=== PATIENT | female | born 1985 | race Hispanic/Latino ===

== ENCOUNTER 2018-01-24 13:10 | Outpatient (CLI) | payer OTHER ==
--- NOTE | 2018-01-24 15:34 | RAD ---
KUB: 01/24/18 HISTORY: Renal stone. There is a fetus in the breech presentation noted. There are dense calcifications in the right upper quadrant. These overlie the right renal pelvis and lower pole of the right kidney probably a staghorn calculus although they are somewhat laminated appearance. Would not totally exclude the possibility that these were related to large gallstones. Faint calcification in the region of the left renal pelv is. There are calcifications in the right side of the pelvis, one of which is a faint 3 to 4 mm trian gular shaped calcification which could potentially be near the right ureterovesical junction. Not ent irely certain that this even represents a true calculus. Clinical correlation as to any right renal c olic symptoms. IMPRESSION: 1. Fetus in a breech presentation. 2. Dense calcifications over the right upper quadrant which could represent staghorn calculus al though would not total exclude the possibility that these are large gallstones. 3. Questionable tiny calcification near the right ureterovesical junction and probable left yandel l calculus. POS: [facility]
== END 2018-01-24 13:11 | disposition home or self-care (01) ==
LOC: RAD 13:10
PROVIDERS: ATTEND Urology
DX: O26.839 Pregnancy related renal disease, unspecified trimester (principal); N20.0 Calculus of kidney; O32.1XX0 Maternal care for breech presentation, not applicable or unspecified
CPT/HCPCS: 74018

== ENCOUNTER 2018-04-17 16:11 | Inpatient (IN) | payer OTHER ==
[~2018-04-17 16:11] MED LIST: Lidocaine 2% MPF 10 ML AMP (For Epidural Use) ONE
[2018-04-17 17:03] VITALS: BMI 32.5
[2018-04-17] MEDS ORDERED: HYDROcodone/Acetaminophen 5/325 mg Tablet PO PRN ×2 (17:36)
[2018-04-17] MEDS ORDERED: Lidocaine 1% (PF) 30 ML VIAL SC PRN (17:36)
[2018-04-17] MEDS ORDERED: Misoprostol 200 MCG TAB PR PRN (17:36)
[2018-04-17] MEDS ORDERED: Diphenoxylate HCl/Atropine Tablet PO PRN ×2 (17:36)
[2018-04-17] MEDS ORDERED: Carboprost 250 MCG/ML AMP IM PRN (17:36)
[2018-04-17] MEDS ORDERED: Ondansetron PF 4 MG/2 ML Vial IVP PRN (17:36)
[2018-04-17] MEDS ORDERED: Acetaminophen 500 MG TAB PO PRN (17:36)
[2018-04-17] MEDS ORDERED: NS / Oxytocin 40 units/1000ml 1,000 ML IV PRN (17:36)
[2018-04-17] MEDS ORDERED: Docusate 100 MG CAP PO PRN (17:36)
[2018-04-17] MEDS ORDERED: Ibuprofen 800 MG TAB PO PRN (17:36)
[2018-04-17] MEDS ORDERED: Promethazine HCl 25 MG/ML VIAL IM PRN (17:36)
[2018-04-17] MEDS ORDERED: Butorphanol Tartrate 1 MG/ML VIAL SLOW IVP PRN (17:36)
[2018-04-17] MEDS ORDERED: Ondansetron PF 4 MG/2 ML Vial ONE (17:40)
[2018-04-17] MEDS: Lactated Ringer's 1,000 ML IV SCH (17:45)
[2018-04-17 18:09] LABS: Hemoglobin 12.8 g/dL (12.0-16.0); Mean Corpuscular HGB CONC 35.7 g/dL (32.0-36.0); Mean Corpuscular Hemoglobin 31.3 pg (27.0-31.0); Mean Corpuscular Volume 87.8 fL (78.0-98.0); Mean Platelet Volume 7.7 fL (7.4-10.4); Platelet Count 218 thou/uL (130-400); Red Blood Cell (RBC) Count 4.09 mill/uL (4.20-5.40); White Blood Cell (WBC) Count 9.3 thou/uL (4.8-10.8)
[2018-04-17 18:32] LABS: ALT (SGPT) 10 U/L (8-55); AST (SGOT) 18 U/L (5-34); Albumin 3.5 g/dL (3.5-5.0); Alkaline Phosphatase 256 U/L (40-150); Anion Gap 17 mmol/L (10-20); BUN (Urea Nitrogen) 12 mg/dL (7.0-18.7); Bilirubin, Total 0.4 mg/dL (0.2-1.2); Calc. Creatinine Clearance 135 mL/min (70-130); Calcium 9.4 mg/dL (7.8-10.44); Carbon Dioxide 17 mmol/L (22-29); Chloride 108 mmol/L (98-107); Estimated GFR-MDRD 82; Globulin 3.1 g/dL (2.4-3.5); Glucose 104 mg/dL (70-105); Potassium 3.7 mmol/L (3.5-5.1); Protein, Total 6.6 g/dL (6.0-8.3); Sodium 138 mmol/L (136-145)
[2018-04-17 18:57] LABS: HBSAg Index 0.23 S/CO (0-0.99); Hep B Surf Ag Non-Reactive S/CO (NonReactive)
[2018-04-17 19:36] LABS: Syphilis Antibody Nonreactive (Nonreactive); Syphilis Antibody Index 0.07 S/CO (<1.00 Non-Reactive)
[2018-04-17] MEDS ORDERED: Zolpidem Tartrate 5 MG TAB PO PRN (20:05)
[2018-04-18] MEDS: Lactated Ringer's 1,000 ML IV SCH ×2 (08:03→15:15)
--- NOTE | 2018-04-18 09:11 | PDOC.LDHP ---
Labor and Delivery H&P Chief complaint: other HPI: 32 y/o at 38 and 4/7wks presents to clinic today with BP 158/82. Ultrasound for growth shows Oligohydramnios, NING of 5cm. Patient is also 4cm dilated on cervical exam and desires a 3rd TOLAC (2 previous successful VBACs). Furthermore, Urology has been involved throughout this from early 2nd trimester for complex renal lithiasis requiring percutaneous nephrostomy tube on right (now removed). Urology recommended "Induction at term" - which given TOLAC desires - we have tried to work with and had planned a 39 weeks induction. Current gestational age (weeks): 38 Due date: 04/27/18 Grav: 11 Para: 7 Current complications: gestational hypertension, oligohydramnios, other (Severe Renal Lithiasis) Abnormal US findings: Yes (NING at 5cm (borderline Oligohydramnios)) Current medications: pre- vitamins Previous surgical history: low tranverse CS Allergies/Adverse Reactions: Allergies Allergy/AdvReac Type Severity Reaction Status Date / Time hydrocodone Allergy Verified 04/17/18 18:05 Social history: none - Physical Exam Vital signs reviewed and normal: yes General: NAD Heart: RRR Lungs: nonlabored breathing Abdomen: NTTP Extremeties: no edema FHT: category 1 - Vaginal Exam cm dilated: 4 (4cm/80%/-1) - Assessment L&D Assessment: medically indicated induction - Plan Plan: admit to L&D, labor augmentation if indicated, informed consent obtained, other (Patient is requesting 3rd TOLAC for delivery.)
--- NOTE | 2018-04-18 13:30 | PDOC.EVN ---
Event Note - Event Note Event Note: Asked to AROM by Dr. Saunders. Term IUP with dec. NING, h/o C/S with h/o VBACs x2. SVE 4-/vtx, -1. AROM- small amt. of clear fluid with bloody show. FHTs stable.
[2018-04-18] MEDS ORDERED: Fentanyl 4 mcg/Bup 0.1% Cadd 100 ML ONE (13:43)
[2018-04-18] MEDS ORDERED: Acetaminophen 325 MG TAB PO PRN (15:18)
[2018-04-18] MEDS ORDERED: Naloxone HCl 0.4 mg/ml Vial IVP PRN ×2 (15:18)
[2018-04-18] MEDS ORDERED: Ondansetron PF 4 MG/2 ML Vial IVP PRN ×2 (15:18→21:48)
[2018-04-18] MEDS ORDERED: Promethazine HCl 25 MG/ML VIAL IM PRN ×2 (15:18→21:48)
[2018-04-18] MEDS ORDERED: diphenhydrAMINE 50 MG/ML VIAL IVP PRN (15:18)
[2018-04-18] MEDS ORDERED: Lactated Ringer's 500 ML IV PRN (15:18)
[2018-04-18] MEDS ORDERED: ePHEDrine/0.9% NaCl/PF SYRINGE 50 mg/10 ml SLOW IVP PRN (15:18)
[2018-04-18] MEDS ORDERED: Eucerin (Mineral Oil/Petrolatum,White) 30 gm Jar TOP PRN (15:18)
[2018-04-18] MEDS ORDERED: Communication Order-Pharmacy FS SCH (15:30)
[2018-04-18] MEDS ORDERED: Fentanyl 4 mcg/Bupivacaine 0.1% Cassette 100 ML EPIDURAL SCH (15:30)
[2018-04-18] MEDS ORDERED: NS w/ Oxytocin 10 units 500 ML ONE (17:31)
[2018-04-18] MEDS ORDERED: NS / Oxytocin 40 units/1000ml 1,000 ML ONE ×2 (19:13)
[2018-04-18] MEDS ORDERED: Lidocaine 1% (PF) 30 ML VIAL ONE (19:13)
[2018-04-18] MEDS ORDERED: Misoprostol 200 MCG TAB ONE (19:17)
[2018-04-18] MEDS ORDERED: Zolpidem Tartrate 5 MG TAB PO PRN (21:48)
[2018-04-18] MEDS ORDERED: Preparation H Ointment 28 GM TUBE PR PRN (21:48)
[2018-04-18] MEDS ORDERED: Measles/Mumps/Rubella 10 MCG/0.5 ML VIAL SC ONE (21:48)
[2018-04-18] MEDS ORDERED: NS / Oxytocin 40 units/1000ml 1,000 ML IV SCH (21:48)
[2018-04-18] MEDS ORDERED: diphenhydrAMINE 25 MG CAP PO PRN (21:48)
[2018-04-18] MEDS ORDERED: Benzocaine/Menthol 20-0.5% 60 ML CAN TOP PRN (21:48)
[2018-04-18] MEDS ORDERED: Bisacodyl 10 MG SUPP PR PRN (21:48)
[2018-04-18] MEDS ORDERED: Lanolin Ointment 7 GM TUBE TOP PRN (21:48)
[2018-04-18] MEDS ORDERED: Milk Of Magnesia 30 ML UDCUP PO PRN (21:48)
[2018-04-18] MEDS ORDERED: Varicella virus, LIVE 0.5 ML VIAL SC ONE (21:48)
[2018-04-18] MEDS ORDERED: Adacel (T-DAP) 0.5 ML SYRINGE IM ONE (21:48)
[2018-04-18] MEDS: Ibuprofen 800 MG TAB PO SCH (21:59)
[2018-04-19] MEDS: Lactated Ringer's 1,000 ML IV SCH (03:29)
[2018-04-19] MEDS: Ibuprofen 800 MG TAB PO SCH ×3 (06:34→21:43)
[2018-04-19 06:41] LABS: Hemoglobin 10.6 g/dL (12.0-16.0); Mean Corpuscular HGB CONC 35.2 g/dL (32.0-36.0); Mean Corpuscular Hemoglobin 31.5 pg (27.0-31.0); Mean Corpuscular Volume 89.4 fL (78.0-98.0); Mean Platelet Volume 7.3 fL (7.4-10.4); Platelet Count 161 thou/uL (130-400); RBC Distribution Width 12.8 % (11.5-14.5); Red Blood Cell (RBC) Count 3.36 mill/uL (4.20-5.40); White Blood Cell (WBC) Count 8.8 thou/uL (4.8-10.8)
[2018-04-19] MEDS: Ferrous Sulfate 325 MG TAB PO SCH ×2 (10:01→17:18)
[2018-04-19] MEDS: Prenatal Vitamin 1 TAB PO SCH (10:23)
[2018-04-19] MEDS: Docusate Calcium (SURFAK) 240 MG CAP PO SCH ×2 (10:23→21:43)
--- NOTE | 2018-04-19 20:34 | PDOC.PP ---
Post Progress Note Post Day #: 1 PO intake tolerated: yes Flatus: yes Ambulation: yes Vital Signs (12 hours) Temp Pulse Resp BP Pulse Ox 04/19/18 17:26 97.9 F 63 20 107/68 98 04/19/18 12:03 97.9 F 87 20 137/84 04/19/18 08:35 100 Weight Weight 190 lb - Physical Examination General: NAD Cardiovascular: no m/r/g, RRR Respiratory: clear to auscultation bilaterally Abdominal: + bowel sounds Extremities: negative homans (B) Neurological: no gross focal deficits Psychiatric: A&Ox3, normal affect (UTI based on just resulted clinical UA. Will start on 7 days of Macrobid. DC in am. Urology F/U in clinic JONI.) Result Diagrams: 04/19/18 06:22 04/17/18 16:54 Additional Labs: Post Labs Blood Type A POSITIVE 04/17/18 16:54 Hep Bs Antigen Non-Reactive S/CO (NonReactive) 04/17/18 16:54
[2018-04-19] MEDS ORDERED: Acetaminophen/Codeine 30-300mg Tablet PO PRN (20:35)
[2018-04-19] MEDS: Nitrofurantoin Monohyd/M-Cryst 100 MG CAP PO SCH (21:43)
[2018-04-20] MEDS: Ibuprofen 800 MG TAB PO SCH (06:02)
[2018-04-20 08:09] VITALS: BP 117/65; TEMP 98.4
[2018-04-20] MEDS: Prenatal Vitamin 1 TAB PO SCH (09:04)
[2018-04-20] MEDS: Ferrous Sulfate 325 MG TAB PO SCH (09:04)
[2018-04-20] MEDS: Nitrofurantoin Monohyd/M-Cryst 100 MG CAP PO SCH (09:04)
[2018-04-20] MEDS: Docusate Calcium (SURFAK) 240 MG CAP PO SCH (09:05)
--- NOTE | 2018-04-24 08:41 | OP ---
DATE OF PROCEDURE: 04/18/2018 TIME OF SERVICE: 1921 Hours PREOPERATIVE DIAGNOSES: Intrauterine at 38 weeks and 5 days with spontaneous early labor, history of vaginal after x2, history of percutaneous nephrostomy of this for renal lithiasis with urology recommending early term delivery and oligohydramnios. POSTOPERATIVE DIAGNOSES: Intrauterine at 38 weeks and 5 days with spontaneous early labor, history of vaginal after x2, history of percutaneous nephrostomy of this for renal lithiasis with urology recommending early term delivery and oligohydramnios. PROCEDURE PERFORMED: Delivery was a successful vaginal after section (spontaneous vaginal delivery) over first-degree laceration. FINDINGS: A viable female infant weighing 3961 grams or 8 pounds 12 ounces, Apgars of 8 and 9. QUANTITATIVE BLOOD LOSS: 81 grams. COMPLICATIONS: None. DETAILS OF THE PROCEDURE: The patient presented to [facility] where she was admitted to the Labor and Delivery service. The patient underwent a normal and uneventful labor with normal cervical dilatation until she was found to be completely dilated. She was then allowed to push and was able to bring the baby down and delivered the baby in a vertex presentation without difficulties. Once the head delivered in occiput anterior position, the shoulders followed spontaneously along with the rest of the baby's body. Once out the baby's mouth and nose were bulb suctioned. The cord was clamped and cut and baby was handed to waiting attendants. Cord blood was collected. Gentle Fundal massage was performed and the placenta delivered intact without problems. Hemostasis was assured. Quantitative blood loss was calculated. Inspection of the cervix, vaginal vault, and perineum did not reveal any lacerations needing suturing. Once again, hemostasis was within normal limits and the patient was allowed to recover in the labor and delivery room. Baby went to nursery. ADDENDUM: The patient was brought in at 4 to 5 cm dilatation. We believe the patient was in early labor. Nonetheless, the patient had oligohydramnios at term. She made minimal change overnight. Membranes were artificially ruptured the following day with the assistance of Dr. Jerald Pryor. The patient continued to make minimal change, we started Pitocin and within a very short timeframe with Pitocin at 4 milliunits, she quickly changed from 5 to 7 cm to complete and then gave quickly and easily over a small first-degree laceration. Job ID: [id number]
== END 2018-04-20 12:00 | disposition home or self-care (01) | DRG 806 ==
LOC: L&D/OP 16:11 → L&D 17:18 → 3SW 04-19 00:23
PROVIDERS: ADMIT Obstetrics & Gynecology; ATTEND Obstetrics & Gynecology
PROC: 10E0XZZ Delivery of Products of Conception, External Approach (ICD-10-PCS; principal; 2018-04-18)
PROC: 10907ZC Drainage of Amniotic Fluid, Therapeutic from Products of Conception, Via Natural or Artificial Opening (ICD-10-PCS; 2018-04-18)
DX: O41.03X0 Oligohydramnios, third trimester, not applicable or unspecified (principal); O86.20 Urinary tract infection following delivery, unspecified; Z37.0 Single live birth; O13.4 Gestational [pregnancy-induced] hypertension without significant proteinuria, complicating childbirth; O70.0 First degree perineal laceration during delivery; Z3A.38 38 weeks gestation of pregnancy; N20.0 Calculus of kidney
CPT/HCPCS: 36415; 51702; 80053; 85027; 86780; 86850; 86900; 86901; 87340; 90471; 90686; 90715; G0008; J1200; J2001; J2405

== ENCOUNTER 2018-05-23 12:56 | Outpatient (CLI) | payer OTHER ==
[~2018-05-23 12:56] MED LIST changes: +ISOVUE-370 76%-LOCM 1 ML ONE; -Lidocaine 2% MPF 10 ML AMP (For Epidural Use) ONE
--- NOTE | 2018-05-23 14:53 | CT ---
CT OF THE ABDOMEN AND PELVIS WITHOUT AND WITH CONTRAST: COMPARISON: X-ray from [facility] 01/24/2018. HISTORY: Calculus of the kidney and ureter. TECHNIQUE: Multiple contiguous axial images were obtained in a CT of the abdomen and pelvis without and with con trast. Sagittal and coronal reformats were performed. FINDINGS: There are bulky calcifications in the right renal collecting system. The largest calcification is se en in the proximal aspect of the right ureter extending into the renal pelvis measuring 2.5 cm in gre atest dimension. The calculi within the calyces have been confluent and are starting to appear as st aghorn calculi. There is mild enlargement of the right renal calyces. No delay in the right renal n ephrogram is seen. There is a small left renal calcification measuring 6-7 mm in greatest dimension. The liver, gallbladder, adrenal glands, spleen, and pancreas are unremarkable. No free air, free flu id, or stranding changes are seen in the abdomen or pelvis. The reproductive organs are unremarkable. The large and small bowel are unremarkable. No abdominal or pelvic lymphadenopathy are seen. Degenerative changes are seen in the spine. The visualized inferior thorax and abdominal wall soft t issues are unremarkable. IMPRESSION: Bilateral renal calculi, right greater than left. These calculi appear nonobstructing as there is no delay in either nephrogram. POS: [facility]
== END 2018-05-23 12:57 | disposition home or self-care (01) ==
LOC: BICCT 12:56
PROVIDERS: ATTEND Urology
DX: N20.2 Calculus of kidney with calculus of ureter (principal)
CPT/HCPCS: 74178

== ENCOUNTER 2018-05-25 11:23 | Outpatient (CLI) | payer OTHER ==
[2018-05-25 12:34] LABS: Hemoglobin 14.1 g/dL (12.0-16.0); Mean Corpuscular HGB CONC 33.7 g/dL (32.0-36.0); Mean Corpuscular Hemoglobin 30.3 pg (27.0-31.0); Mean Corpuscular Volume 89.9 fL (78.0-98.0); Mean Platelet Volume 6.4 fL (7.4-10.4); Platelet Count 207 thou/uL (130-400); RBC Distribution Width 11.8 % (11.5-14.5); Red Blood Cell (RBC) Count 4.67 mill/uL (4.20-5.40); White Blood Cell (WBC) Count 6.2 thou/uL (4.8-10.8)
[2018-05-25 12:42] LABS: BHCG - Serum Negative (NEGATIVE); Pregs Control Background? CLEAR/WHITE (CLR/WHITE); Pregs Control Bar Appear? YES (CONTROL BAR)
[2018-05-25 12:46] LABS: Anion Gap 10 mmol/L (10-20); BUN (Urea Nitrogen) 14 mg/dL (7.0-18.7); Calc. Creatinine Clearance 0 mL/min (70-130); Calcium 9.2 mg/dL (7.8-10.44); Carbon Dioxide 25 mmol/L (22-29); Chloride 109 mmol/L (98-107); Estimated GFR-MDRD 78; Glucose 86 mg/dL (70-105); Potassium 4.3 mmol/L (3.5-5.1); Sodium 140 mmol/L (136-145)
== END 2018-05-25 11:24 | disposition home or self-care (01) ==
LOC: LABBT 11:23
PROVIDERS: ATTEND Urology
DX: Z01.812 Encounter for preprocedural laboratory examination (principal); N20.2 Calculus of kidney with calculus of ureter; N39.0 Urinary tract infection, site not specified; R39.14 Feeling of incomplete bladder emptying
CPT/HCPCS: 80048; 84703; 85027

== ENCOUNTER 2018-05-29 08:40 | Day surgery (SDC) | payer OTHER ==
[2018-05-29] MEDS ORDERED: Fentanyl 100 MCG/2 ML VIAL ONE (09:11)
[2018-05-29] MEDS ORDERED: cefTRIAXone\\ROCEPHIN 1 GM in Sodium Chloride 0.9% 100 ML IVPB SCH (09:45)
[2018-05-29] MEDS ORDERED: Midazolam HCl 2 mg/2 ml Vial ONE (10:17)
[2018-05-29] MEDS ORDERED: Iothalamate Meglumine 60% 50 ML VIAL FS ONE (10:32)
--- NOTE | 2018-05-29 10:40 | RAD ---
ONE VIEW ABDOMEN: HISTORY: Preoperative exam. COMPARISON: 01/24/2018 CORRELATION: CT abdomen and pelvis from 05/23/2018. FINDINGS: Nonspecific bowel gas pattern. Scattered fecal material in a nondistended, nondilated colon. Extensive staghorn calcifications projecting over the right renal pelvis. Smaller calcifications in the left renal pelvis are noted. No pneumoperitoneum. IMPRESSION: Bilateral, right greater than left, renal calculi. POS: [facility]
[2018-05-29] MEDS ORDERED: Furosemide 20 MG/2 ML VIAL ONE (11:37)
[2018-05-29 11:44] LABS: Bilirubin Negative (Negative); Blood, Urine Large (Negative); Clarity CLOUDY (Clear); Glucose, Urine (Dipstick) Negative (Negative); Leukocyte Large (Negative); Nitrite Negative (Negative); Protein, Urine (Dipstick) Trace mg/dL (Neg-Trace); Specific Gravity, Urine 1.021 (1.002-1.036); Urobilinogen 0.2 mg/dL (0.2-1.0)
[2018-05-29 11:50] LABS: Bacteria/HPF None Seen HPF (None Seen); Hyaline Casts/LPF 4-6 HYALINE CAST LPF (0-3 Hyaline); RBC/HPF GREATER THAN 50-TNTC HPF (0-3); Squamous Epithelial None Seen HPF (0-3)
[2018-05-29] MEDS ORDERED: Oxybutynin 5 MG TAB ONE (13:03)
[2018-05-29] MEDS ORDERED: Succinylcholine Chloride 20 MG/ML 10 ml SYRINGE FS ONE (16:15)
[2018-05-29] MEDS ORDERED: Dexamethasone 20 MG/5 ML VIAL ONE (16:15)
[2018-05-29] MEDS ORDERED: Glycopyrrolate 0.2 MG/ML 5 ML SYRINGE ONE (16:15)
[2018-05-29] MEDS ORDERED: Lidocaine 1% PF 5 ML VIAL ONE (16:15)
[2018-05-29] MEDS ORDERED: Ondansetron PF 4 MG/2 ML Vial ONE (16:15)
[2018-05-29] MEDS ORDERED: diphenhydrAMINE 50 MG/ML VIAL ONE (16:15)
[2018-05-29] MEDS ORDERED: PHENYLEPHRINE-NS 100 MCG/ML 10 ML SYRINGE ONE (16:15)
[2018-05-29] MEDS ORDERED: Rocuronium Bromide 10 MG/ML (10ML VIAL) ONE (16:15)
[2018-05-29] MEDS ORDERED: Metoclopramide HCl 10 MG/2 ML VIAL ONE (16:15)
[2018-05-29] MEDS ORDERED: PROPOFOL 200 MG/20 ML VIAL ONE (16:15)
--- NOTE | 2018-05-29 18:59 | OP ---
DATE OF PROCEDURE: 05/29/2018 PREOPERATIVE DIAGNOSIS: Right staghorn and left renal stones. POSTOPERATIVE DIAGNOSES: Right staghorn and left renal stones. PROCEDURES PERFORMED: Cystoscopy, right retrograde pyelogram, and insertion of right ureteral stent 6 x 28 double-J as well as left extracorporeal shockwave lithotripsy. ANESTHESIA: General with endotracheal tube. FINDINGS: Difficult placement of a right stent given the staghorn filling the entire pelvis and causing partial if not complete obstruction, but ultimately this stent was adequately placed, and then adequate fragmentation of left renal stones. SPECIMENS: Urine from the right renal pelvis. COMPLICATIONS: None. DRAIN REMAINING: Internal double-J 28 x 6. ESTIMATED BLOOD LOSS: Minimal. INDICATIONS FOR PROCEDURE: The patient is a 32-year-old female, who has followed up during her for a large staghorn infections and left smaller stones and we waited until she delivered to address her stones. She has such a large volume with a chronic hydro that I wanted to assess renal function prior to committing to percutaneous nephrolithotomy. So, we discussed placing a stent to rule out obstruction before doing a renal scan as well as treating her left-sided stones at the same time. DESCRIPTION OF PROCEDURE: The patient was brought into the room by Anesthesia, laid on the table in supine position. After receiving general anesthetic, the legs were placed in lithotomy position with the perineum prepped and draped in a sterile fashion. Using a 21-Mongolian cystoscope and a 30-degree lens, the urethra was traversed and the bladder was inspected. The ureteral orifices were noted in normal position. The right was intubated with a wire and the Richmond catheter advanced up to the level of stone. There was resistance at the stone and then the wire was placed back that I was concerned that the wire actually might have perforated the pelvis as opposed to and gone into the collecting system based on the way it was going straight up and not coiling at all. So then I got a Glidewire and I was able to push this into what clearly appeared to be the actual renal collecting system, but ultimately replaced the wire still. So, the coil was not in a good position in the renal pelvis or definitively the collecting system. Attempts at manipulating this were unsuccessful, and I just took that stent all again and started over. The Richmond catheter was advanced to the level of the renal pelvis and then a Glidewire was pushed into the renal pelvis and into a calyx and clearly in that area. It was difficult to keep it in there for my minister assistant, but finally this was successfully done so that I could advance the pollack catheter and remove the glide wire. A hydronephrotic drip was noted. Retrograde pyelogram confirmed this as well as a hydronephrotic drip with about 10 mL of urine extracted and sent for specimen. Then, the regular wire was replaced, the Pollack removed, and then the 6 x 28 double-J stent was placed with a good coil visualized in the proximal portion of the pelvis and into the mid calyx and a good coil visualizing in the bladder with effuse from the stent noted. The scope was broken apart. Bladder drained and then removed in its entirety and the patient was turned supine. The patient was positioned such that the lithotriptor could identify the stone in multiple planes and then the 7 mm mid stone was given approximately 2100 to 2200 shocks at a power level of 4/6 at a maximum rate of 60 to 90 per minute. Then, attention was turned to 3 mm lower pole stone, where 340 shocks were delivered with good fragmentation noted for both. The patient tolerated the procedure well, was then awakened and transferred to PACU in stable condition. Job ID: [id number] [facility]
== END 2018-05-29 13:40 | disposition home or self-care (01) ==
LOC: SDC 08:40
PROVIDERS: ATTEND Urology
PROC: 0T768DZ Dilation of Right Ureter with Intraluminal Device, Via Natural or Artificial Opening Endoscopic (ICD-10-PCS; principal; 2018-05-29)
PROC: 0TF7XZZ Fragmentation in Left Ureter, External Approach (ICD-10-PCS; principal; 2018-05-29)
DX: N13.2 Hydronephrosis with renal and ureteral calculous obstruction (principal); Z88.5 Allergy status to narcotic agent; Z79.2 Long term (current) use of antibiotics; Z98.890 Other specified postprocedural states
CPT/HCPCS: 74018; 81001; 87070; 87205; C1758; C1769; J0696; J1100; J1200; J1940; J2001; J2250; J2405; J2704; J2765; J3010; J7050; Q9961

== ENCOUNTER 2018-06-08 12:51 | Outpatient (CLI) | payer OTHER ==
[2018-06-08] MEDS ORDERED: Furosemide 40 MG/4 ML VIAL ONE (15:00)
--- NOTE | 2018-06-08 16:51 | NM ---
RADIONUCLIDE RENOGRAM: HISTORY: Kidney stones. Ureteral stones. TECHNIQUE: Lasix, IV, 38.6 mg, was given 15 minutes prior to imaging, and 7.5 millicuries of technetium 99m mag- 3 was administered. FINDINGS: There is good and symmetric flow to each kidney. Time to max for the left kidney was 2 minutes and t he right kidney was 1.9 minutes. Half-life max of the left kidney is 8.3 minutes and the right kidne y 29.6 minutes. Wash-out curves are appropriate bilaterally. Normalized glomerular filtration rate is 3737 mL per minute. Each kidney accounts for 50% of the upt dimitry. Posterior planar images show some persistent uptake at the superior pole of the right kidney, c ompared to the left. IMPRESSION: While there is asymmetry of the half-life emptying and residual uptake over the superior pole right k idney on the delayed images, it is favored to be related to pooling of radiotracer in the collecting system rather than significant obstruction. There is symmetric flow to and function of the kidneys. POS: [facility]
== END 2018-06-08 12:52 | disposition home or self-care (01) ==
LOC: NM 12:51
PROVIDERS: ATTEND Urology
DX: N20.2 Calculus of kidney with calculus of ureter (principal)
CPT/HCPCS: 78708; A4641; A9537; J1940

== ENCOUNTER 2018-06-11 09:17 | Outpatient (CLI) | payer OTHER ==
--- NOTE | 2018-06-11 11:03 | RAD ---
ONE VIEW ABDOMEN: HISTORY: Staghorn calculi. Right ureteral stent. COMPARISON: 05/29/2018. FINDINGS: Interval placement of a double-J right ureteral stent. Proximal pigtail is in the region of the righ t renal pelvis. Distal pigtail is presumed to be in the right aspect of the bladder. Multiple stagh orn calculi are again demonstrated projecting over the right renal silhouette. There is a calcificat ion adjacent to the distal right pigtail likely representing a phlebolith. Note calcifications along the visualized right ureteral stent. Nonspecific bowel gas. IMPRESSION: 1. Multiple right-sided staghorn calculi. 2. Right ureteral stent. POS: [facility]
== END 2018-06-11 09:18 | disposition home or self-care (01) ==
LOC: RAD 09:17
PROVIDERS: ATTEND Urology
DX: N20.2 Calculus of kidney with calculus of ureter (principal); Z96.0 Presence of urogenital implants
CPT/HCPCS: 74018; 81001; 87086

== ENCOUNTER 2018-06-21 10:00 | Inpatient (IN) | payer OTHER ==
[2018-06-25] MEDS ORDERED: Fentanyl 100 MCG/2 ML VIAL ONE (10:57)
[2018-06-25] MEDS ORDERED: Midazolam HCl 2 mg/2 ml Vial ONE (10:57)
[2018-06-25] MEDS ORDERED: cefTRIAXone\\ROCEPHIN 1 GM in Sodium Chloride 0.9% 100 ML IVPB SCH (13:45)
[2018-06-25 15:02] VITALS: BMI 36.8
[2018-06-25] MEDS ORDERED: Acetaminophen/Codeine 30-300mg Tablet PO PRN (15:35)
[2018-06-25] MEDS ORDERED: Metoclopramide HCl 10 MG/2 ML VIAL IVP PRN (15:35)
[2018-06-25] MEDS ORDERED: Morphine 4 MG/ML VIAL SLOW IVP PRN (15:35)
[2018-06-25] MEDS: Morphine 4 MG/ML VIAL SLOW IVP PRN (16:06)
[2018-06-25 16:27] LABS: #Eosinphils 0.2 thou/uL (0.0-0.7); #Lymphocytes 2.3 thou/uL (1.20-3.40); #Monocytes 0.5 thou/uL (0.11-0.59); #Neutrophils 3.3 thou/uL (1.40-6.50); %Basophils 0.2 % (0.0-1.0); %Eosinophils 3.3 % (0.0-10.0); %Lymphocytes 36.3 % (21.0-51.0); %Monocytes 8.3 % (0.0-10.0); %Neutrophils 51.9 % (42.0-75.0); Hemoglobin 13.2 g/dL (12.0-16.0); Mean Corpuscular HGB CONC 34.2 g/dL (32.0-36.0); Mean Corpuscular Hemoglobin 30.1 pg (27.0-31.0); Mean Corpuscular Volume 87.9 fL (78.0-98.0); Mean Platelet Volume 6.4 fL (7.4-10.4); Platelet Count 214 thou/uL (130-400); RBC Distribution Width 11.7 % (11.5-14.5); Red Blood Cell (RBC) Count 4.38 mill/uL (4.20-5.40); White Blood Cell (WBC) Count 6.3 thou/uL (4.8-10.8)
[2018-06-25] MEDS: Lactated Ringer's 1,000 ML IV SCH ×2 (17:25→23:23)
--- NOTE | 2018-06-25 17:37 | SPC ---
RIGHT ANTEGRADE PYELOGRAM AND ATTEMPTED NEPHROURETERAL CATHETER PLACEMENT: 06/25/2018 HISTORY: Obstructing large staghorn right renal calculus. Placement of a nephroureteral catheter was requeste d prior to percutaneous nephrolithotomy. TOTAL FLUOROSCOPY TIME: 25 minutes. OPERATORS: Tre Jimenez MD AND Quan Lane MD TECHNIQUE: The procedure, including the risks and complications, were explained to the patient, and informed con sent was obtained. The patient was placed on the angiography table in the supine position. Fluorosc opy was performed, and the calculus in the mid portion, right kidney, was localized, which was also t he site of the proximal ureteral stent within a posterior calyx. The area was marked and then meticu lously prepped and draped in the usual sterile fashion. The skin and subcutaneous tissues were infil trated with buffered 1% Lidocaine for local anesthesia. A 22 gauge Chiba needle was advanced to the level of the ureteral stent. The inner stylet was remove d with return of clear urine. Contrast injection was performed, which demonstrated dilatation of thi s calyx, as well as an additional calyx in the superior pole. Attempts at manipulating a 0.018 inch guidewire distal to this region were unsuccessful. A 0.018 inch Glidewire was then manipulated into a more anterior dilated calyx, and a 4 Indian introducer sheath was placed in the dilated posterior c jamie. A 0.035 inch Glidewire was placed, and attempts at manipulating the Glidewire into the right ureter w ere unsuccessful. Given unsuccessful attempts, Dr. Lane was requested for an attempt at placement of a nephroureteral c atheter. The collecting system was again re-accessed at a different location by Dr. Lane and contras t was injected again, confirming placement in the collecting system via this calyx in the mid portion of the right kidney. However, again, attempts at manipulating a guidewire distal to the large stagh orn calculus, in the region of the renal pelvis, were unsuccessful. Given difficulty in traversing t he staghorn calculus and into the ureter, as well as the amount of fluoroscopy time, the procedure wa s terminated at this point. Hemostasis was achieved with direct pressure, and a dry, sterile dressing was placed. The patient's vital signs remained stable during the procedure, as well as post procedure, but the pa tient continued to complain of intense cramping pain. Given the persistence of pain, a noncontrast C T scan was obtained, which demonstrated distention of the dilated renal collecting system with contra st, but no contrast was seen in the more dilated superior pole right renal collecting system. A tiny amount of increased density fluid is seen adjacent to the kidney. No significant perinephric fluid collection or hematoma is identified. The patient was transported back to the hospital room in stable condition. IMPRESSION: Large staghorn right renal calculus with obstruction of the upper pole collecting system. Ureteral s tent is noted in place. The right antegrade pyelogram was successfully performed, demonstrating dila tation of the calyces, mid portion, right kidney. However, a guidewire was unable to be manipulated distal to the renal pelvis, and as a result, the procedure was terminated, and Dr. Ling was notifie d of the findings. CODE CR POS: [facility]
--- NOTE | 2018-06-25 17:38 | CT ---
CT ABDOMEN WITHOUT IV CONTRAST: Date: 06/25/18 HISTORY: Patient with reported excruciating pain post attempted right nephroureteral catheter placement and an tegrade pyelogram. COMPARISON: CT abdomen and pelvis dated 05/23/18. FINDINGS: Again noted is a large staghorn right renal calculus with dilatation of the superior pole right renal collecting system, and this does appear more dilated than on the prior exam on 05/23/18. A few addit ional calculi are seen within the superior pole of renal calices. There is residual contrast in the r ight renal collecting system and visualized proximal right ureter related to recent examination. Tiny amount of increased density material is seen adjacent to the mid portion of the right kidney whi ch could be related to either contrast or a tiny amount of hemorrhage. There is no significant right perinephric fluid collection or evidence of hematoma. The lung bases are clear, and there is no pneumothorax. No significant stranding is seen in the subcu taneous soft tissues. A few punctate nonobstructing calculi are seen in the left kidney. The liver, spleen, pancreas, and bilateral adrenal glands demonstrate a grossly normal nonenhanced CT appearance. IMPRESSION: 1. Large staghorn right renal calculus with obstruction of the superior pole right renal collecting system, which does appear more dilated than on prior exam. 2. Residual contrast in the right renal collecting system. 3. No significant perinephric fluid collection or hematoma is appreciated. There is minimal focus of increased density at the lateral aspect of mid portion of right kidney, which may be related to a mi nimal amount of contrast and/or hemorrhage. POS: [facility]
[2018-06-25] MEDS: Famotidine/PF 20 mg/2ml Vial SLOW IVP SCH (21:32)
[2018-06-25] MEDS: Docusate 100 MG CAP PO SCH (21:33)
[2018-06-25] MEDS: diphenhydrAMINE 50 MG in Sodium Chloride 0.9% 50 ML IVPB PRN (22:07)
[2018-06-25] MEDS: Ondansetron PF 4 MG/2 ML Vial IVP PRN (23:18)
[2018-06-26 04:35] LABS: Anion Gap 10 mmol/L (10-20); BUN (Urea Nitrogen) 11 mg/dL (7.0-18.7); Calc. Creatinine Clearance 140 mL/min (70-130); Calcium 8.8 mg/dL (7.8-10.44); Carbon Dioxide 26 mmol/L (22-29); Chloride 109 mmol/L (98-107); Estimated GFR-MDRD 75; Glucose 100 mg/dL (70-105); Potassium 3.5 mmol/L (3.5-5.1); Sodium 141 mmol/L (136-145)
[2018-06-26] MEDS: cefTRIAXone\\ROCEPHIN 2 GM in Sodium Chloride 0.9% 100 ML IVPB SCH (04:47)
[2018-06-26] MEDS: Lactated Ringer's 1,000 ML IV SCH ×3 (06:40→21:13)
[2018-06-26] MEDS ORDERED: Lidocaine 4% Topical Sol 50 ML BOT ONE (06:50)
[2018-06-26] MEDS ORDERED: Fentanyl 250 MCG/5 ML VIAL ONE (06:50)
[2018-06-26] MEDS ORDERED: Midazolam HCl 2 mg/2 ml Vial ONE (07:03)
[2018-06-26] MEDS ORDERED: Scopolamine 1.5 mg/72 hour Patch ONE (07:03)
[2018-06-26] MEDS ORDERED: Iothalamate Meglumine 60% 50 ML VIAL FS ONE ×2 (07:03→09:20)
[2018-06-26] MEDS: Ondansetron PF 4 MG/2 ML Vial IVP PRN (13:19)
[2018-06-26] MEDS ORDERED: Tamsulosin HCl 0.4 MG CAP PO SCH (13:30)
[2018-06-26] MEDS ORDERED: Famotidine/PF 20 mg/2ml Vial SLOW IVP SCH (13:30)
[2018-06-26] MEDS ORDERED: Docusate 100 MG CAP PO SCH (13:30)
[2018-06-26] MEDS: Docusate 100 MG CAP PO SCH ×2 (13:38→21:02)
[2018-06-26] MEDS: Tamsulosin HCl 0.4 MG CAP PO SCH (13:39)
[2018-06-26] MEDS: Morphine 4 MG/ML VIAL SLOW IVP PRN ×3 (13:39→23:09)
[2018-06-26] MEDS: Famotidine/PF 20 mg/2ml Vial SLOW IVP SCH ×2 (13:39→21:02)
[2018-06-26 13:48] LABS: #Lymphocytes 0.7 thou/uL (1.20-3.40); #Monocytes 0.1 thou/uL (0.11-0.59); #Neutrophils 5.3 thou/uL (1.40-6.50); %Basophils 0.3 % (0.0-1.0); %Eosinophils 0.3 % (0.0-10.0); %Lymphocytes 11.1 % (21.0-51.0); %Monocytes 1.7 % (0.0-10.0); %Neutrophils 86.6 % (42.0-75.0); Mean Corpuscular HGB CONC 33.1 g/dL (32.0-36.0); Mean Corpuscular Hemoglobin 29.4 pg (27.0-31.0); Mean Corpuscular Volume 88.7 fL (78.0-98.0); Mean Platelet Volume 6.6 fL (7.4-10.4); Platelet Count 176 thou/uL (130-400); RBC Distribution Width 11.7 % (11.5-14.5); Red Blood Cell (RBC) Count 4.07 mill/uL (4.20-5.40); White Blood Cell (WBC) Count 6.1 thou/uL (4.8-10.8)
[2018-06-26] MEDS ORDERED: Rocuronium Bromide 10 MG/ML (10ML VIAL) ONE (14:40)
[2018-06-26] MEDS ORDERED: PHENYLEPHRINE-NS 100 MCG/ML 10 ML SYRINGE ONE (14:40)
[2018-06-26] MEDS ORDERED: Lidocaine 1% PF 5 ML VIAL ONE (14:40)
[2018-06-26] MEDS ORDERED: Ondansetron PF 4 MG/2 ML Vial ONE (14:40)
[2018-06-26] MEDS ORDERED: PROPOFOL 200 MG/20 ML VIAL ONE (14:40)
[2018-06-26] MEDS ORDERED: Dexamethasone 20 MG/5 ML VIAL ONE (14:40)
[2018-06-26] MEDS ORDERED: Glycopyrrolate 0.2 MG/ML 5 ML SYRINGE ONE (14:40)
--- NOTE | 2018-06-26 14:43 | RAD ---
RIGHT ANTEGRADE PYELOGRAM AND NEPHROSTOMY TRACT DILATATION: 06/26/2018 HISTORY: Large, obstructing staghorn right renal calculus. TECHNIQUE: The procedure, including the risks and complications, was explained to the patient. The patient was placed on the operating room table in the prone position. General endotracheal anesthesia was perfor med by the anesthesiology department. Just prior to this procedure, the patient was taken to cystosc opy, and a retrograde catheter, as well as guidewire, were placed into the right renal collecting sys tem, in attempt to distend the collecting system, to allow passage of a guidewire, as placement of a nephroureteral catheter one day ago was unsuccessful. Initial access was performed through the posterior calyx mid portion of the left kidney. The collect ing system was then distended via the retrograde ureteral catheter, but the guidewire was unable to b e manipulated distal to the large staghorn calculus in the renal pelvis. As a result, attempt at acc essing an inferior pole calyx was also performed, but, again, a guidewire was unable to be placed dis jack to the significant stone burden and inferior pole calyces. A superior pole calyx was then access ed, and although the access is not ideal for nephrolithotomy and stone retraction from the inferior p ole of the right kidney, there was adequate access to the large calculus within the renal pelvis. Th e superior pole calyx was accessed with a 22 gauge Chiba needle and an 0.[address] d and coiled within the superior pole upper collecting system. The needle was exchanged over a 4 Alexys nch introducer sheath, and a 0.035 inch Glidewire was manipulated into the left ureter. A 5 Italian B erenstein catheter was over the guidewire, and the catheter was positioned in the distal ureter. The Glidewire was then exchanged for an 0.035 inch Amplatz guidewire, and the catheter was exchanged for 8 and 10 Italian tissue dilators, followed by placement of a 9 Italian dual-lumen catheter, and a seco nd Amplatz guidewire was placed to the level of the urinary bladder. Nephrostomy tract dilatation was then performed with a 30 Italian balloon, and a 30 Italian sheath was placed. This portion of the procedure was performed by Dr. Perez and Dr. Ling. Percutaneous nephrolithotomy and laser lithotripsy were then performed by Dr. Ling and Dr. Mandel [facility]. Final provided fluoroscopic image demonstrates a ureteral stent in place, but the most superior and inferior portions of the stent are not imaged on the provided fluoroscopic image. In addition, the superior pole karol is also not seen, to evaluate for placement of an external nephrostomy janice ter. Correlation with intraoperative findings is recommended IMPRESSION: 1. Large staghorn right renal calculus. 2. Technically successful antegrade pyelogram, via a superior pole posterior calyx, with successful placement of guidewires within the distal left ureter. 3. Successful nephrostomy tract dilatation. 4. As noted above, final image demonstrates a ureteral stent in place, and there are calculi seen wi thin the inferior pole right renal calyces. Correlation with intraoperative findings is recommended. POS: [facility]
[2018-06-26] MEDS: Acetaminophen/Codeine 30-300mg Tablet PO PRN ×2 (15:54→21:01)
--- NOTE | 2018-06-26 16:46 | RAD ---
PA AND LATERAL CHEST X-RAY: 06/26/2018 HISTORY: Post percutaneous nephrolithotomy. FINDINGS: The cardiac silhouette and pulmonary vasculature are within normal limits. The lungs are clear. Asi de from minimal atelectasis at the left lung base, there is no pneumothorax or pleural effusion ident ified. There is partial visualization of a right ureteral stent with residual calculi seen within the visual ized superior pole of the right kidney. IMPRESSION: 1. Minimal atelectasis, left lung base. There is otherwise no acute cardiopulmonary process. 2. No evidence of a pneumothorax. 3. Right nephrolithiasis, but the overall burden of calculi in the superior pole does appear diminis hed compared to prior CT examination one day ago. A right ureteral stent is in place. POS: [facility]
--- NOTE | 2018-06-26 17:40 | OP ---
DATE OF PROCEDURE: 06/26/2018 PREOPERATIVE DIAGNOSIS: Right staghorn. POSTOPERATIVE DIAGNOSIS: Right staghorn. PROCEDURES PERFORMED: Percutaneous nephrostomy tube access by Dr. Kg Jimenez as well as cystoscopy, removal of stent, placement and removal of open-ended ureteral stent and wire and then, percutaneous nephrolithotomy. SENIOR ADMINISTRATOR SUPPORT: Jessica Perez DO ANESTHESIA: General with endotracheal tube and local at the percutaneous nephrostomy tube site. COMPLICATIONS: None, but gaining access into usable calyx that would allow all the wire to go down into the ureter was exceedingly difficult, time consuming, and tedious. Dr. Jimenez was able to finally get adequate access and left a tube in place for us to dilate. DESCRIPTION OF PROCEDURE: Prior to Dr. Jimenez gaining access, the patient was in lithotomy position and prepped and draped in sterile fashion. A 21F cystoscope was used to grab the urethral catheter and bring it through the urethra. A wire was placed and able to keep access beyond the obstructing stone and the indwelling stent was removed. Then a [place] catheter was used to go up to the level of the UPJ. Now the wire was beyond the obstructing stone and into the kidney. The ureteral open-ended catheter was at the level of the UPJ to aid in access for the nephrostomy tube. At this point, the scope was removed carefully leaving both the wire and the open-ended catheter, which were then tied to an 18F [place] that was left draining. We were able to use these to aide in manipulation during the percutaneous nephrostomy tube. Then the patient was turned supine. All pressure points were padded. Her back was prepped and draped in sterile fashion. Dr. Jimenez obatined access and dilated to a 10F leaving two wires in place--both going down the ureter and into the bladder. At this point, another sterile sheet was placed for the nephrolithotomy portion. Using the NephroMax balloon, the tract was then dilated, inflating the balloon to 16 mm Hg pressure and leaving it inflated for 2 minutes. Then, this was extracted and the nephro access sheath was placed. It was then manipulated to get it to the stones, which was fairly simple since there were 2 large renal pelvic stones. Using the lithoclast with ultrasonic and pneumonic pressure along with suction, the stones were accessed. Once they were adequately fragmented and extracted, there was not a way to access the lower poles with this device. So the flexible cystoscope was used for this along with holmium laser lithotripsy. We were able to access the stone and fragment a portion of it, but we were at maximum retroflexion for this and so unable to fully fragment stone in the lower calyx. We then examined the rest of the kidney up into the upper pole as well. No further stones were noted. Only the ones remaining in the lower pole that we could not get better access to from this site. So at this point, further irrigation and suction was used to get out of any stone debris. There were no significant fragments other than noted in the lower pole and at this point. A double-J stent was placed over the access wire with a good coil noted to be in the renal pelvis as well as the bladder itself. Then over the safety wire, we were able to place a 24-Surinames[place] catheter. We inflated the balloon and made sure that it was in the renal pelvis and not the ureter or outside of the kidney. Then the wire was removed and the catheter was secured at the level of the skin. There was an average amount of blood loss, which was very difficult to ascertain. Fluid was approximately 2700. Urine output was also difficult to ascertain. The patient tolerated the procedure well and again, the drains remaining were a 24-Sur[place]amese percutaneous nephrostomy Cam[place] and then an 18-Surinamese urethral [place]. The open- ended ureteral stent and retrograde wire had been removed. The patient tolerated the procedure well, was then awakened and transferred to PACU in stable condition. Job ID: [id number] [facility]
--- NOTE | 2018-06-26 17:58 | PRG ---
DATE OF SERVICE: 06/26/2018 SUBJECTIVE: The patient is status post PCNL and is having significant back pain 12/15. She has not had pain medicine for couple hours, but otherwise her nausea is now improved after they gave her something. OBJECTIVE: VITAL SIGNS: Blood pressure 133/60 with heart rate of 100 and saturating 99% on room air. She has had at least 300 from the percutaneous nephrostomy tube and another 200 in the urethral [place]. Both were pink-tinged without any clot. LUNGS: Clear to auscultation bilaterally. ABDOMEN: Soft, nondistended, and nontender with normoactive bowel sounds. LABORATORY DATA: Her potassium was 4.0. Her H and H are stable at 12.0 and 36.1. ASSESSMENT AND PLAN: We have a 33-year-old female, who is status post right percutaneous nephrolithotomy with some fragments remaining, but otherwise doing well. Chest x-ray is pending to rule out any concern for pneumothorax. We will anticipate doing a CT tomorrow to assess for stone clearance. Hydration and pain control for now. Job ID: [id number]
[2018-06-26] MEDS: diphenhydrAMINE 50 MG in Sodium Chloride 0.9% 50 ML IVPB PRN (21:36)
[2018-06-27] MEDS: Acetaminophen/Codeine 30-300mg Tablet PO PRN ×5 (01:32→20:24)
[2018-06-27] MEDS: Morphine 4 MG/ML VIAL SLOW IVP PRN ×5 (03:15→22:24)
[2018-06-27 04:37] LABS: Anion Gap 9 mmol/L (10-20); BUN (Urea Nitrogen) 7 mg/dL (7.0-18.7); Calc. Creatinine Clearance 154 mL/min (70-130); Calcium 8.4 mg/dL (7.8-10.44); Carbon Dioxide 26 mmol/L (22-29); Chloride 108 mmol/L (98-107); Estimated GFR-MDRD 84; Glucose 97 mg/dL (70-105); Potassium 3.4 mmol/L (3.5-5.1); Sodium 140 mmol/L (136-145)
[2018-06-27] MEDS: cefTRIAXone\\ROCEPHIN 2 GM in Sodium Chloride 0.9% 100 ML IVPB SCH (05:28)
[2018-06-27] MEDS: Lactated Ringer's 1,000 ML IV SCH (05:29)
[2018-06-27] MEDS: Tamsulosin HCl 0.4 MG CAP PO SCH (09:14)
[2018-06-27] MEDS: Famotidine/PF 20 mg/2ml Vial SLOW IVP SCH ×2 (09:14→20:23)
[2018-06-27] MEDS: Docusate 100 MG CAP PO SCH ×2 (09:14→20:24)
[2018-06-27] MEDS ORDERED: Potassium Chloride 20 MEQ TAB PO SCH (10:54)
[2018-06-27 12:02] LABS: Pregnancy Test - Urine (BHCG) Negative (Negative); Pregu Control Background? CLEAR/WHITE (CLR/WHITE); Pregu Control Bar Appear? YES (CONTROL BAR); Specific Gravity 1.011 (1.002-1.036)
[2018-06-27] MEDS: Potassium Chloride 20 MEQ TAB PO SCH ×2 (12:05→16:35)
--- NOTE | 2018-06-27 14:43 | CT ---
CT ABDOMEN AND PELVIS WITHOUT CONTRAST: Date: 06-27-18 Provided Clinical History: Evaluate stone burden. FINDINGS: Comparison is made with a study dated 06-25-18 and 05-23-18. There is a small right pleural effusion. There is bilateral bibasilar subsegmental atelectatic change versus infiltrate. A right sided ureteral stent is again noted, the proximal coil is located within the right renal micah ecting system and the distal coil of which terminates in the expected location of the urinary bladder right of midline. Large right renal calculi are redemonstrated. The overall stone burden appears dec reased with respect to the prior examination. Gas is noted within the right renal collecting system. A radiolucent percutaneously inserted drainage catheter terminates in the region of the right renal p mandi. Left sided small renal calculi are again noted. There is persistent hydronephrosis involving t he right kidney particularly involving the superior pole. The [place] catheter noted within the urinary bladder. There is a small amount of nonspecific free pelv ic fluid. Small foci of increased density are seen within the urinary bladder compatible with stone f ragments. The largest of these measures about 5 mm. There is no bowel dilatation or free air apparent. The osseous structures demonstrate no concerning lytic or blastic lesions. IMPRESSION: 1. Right nephrolithiasis persists with overall stone burden reduced. Percutaneous drainage catheter a nd right ureteral stent are noted as above. There is persistent right hydronephrosis. 2. Other findings as above. POS: TPC
--- NOTE | 2018-06-27 17:48 | PRG ---
DATE OF SERVICE: 06/27/2018 SUBJECTIVE: The patient is postoperative day 1 from a percutaneous nephrolithotomy for significant stone disease with known lower pole stone remaining. She did well overnight. She is still having significant pain. There have been no concerns about her vitals or output with respect to hematuria or clotting. She has gotten up to chair, but has not worked in the hallway. OBJECTIVE: VITAL SIGNS: Vitals have been stable with a temperature of 98.2, heart rate in the 90s, saturating 95% to 97% on room air, although there is a 73, I suspect that was abnormal entry. There have been no concerns about her oxygenation. Blood pressure 106/53. She has had 1400 from the [place] and almost 1400 from the nephrostomy tube. The urine in the tubing is now pink tinged only from the nephrostomy tube, and the bandage was changed from a wetness standpoint, but not a blood standpoint. The [place] catheter is also pink tinged and draining fine. HEART: Regular rate and rhythm. No murmurs, gallops, or rubs. LUNGS: Clear to auscultation bilaterally. ABDOMEN: Soft, nondistended, and nontender. LABORATORY VALUES: Reveal a H and H that I ordered for this morning was actually done yesterday afternoon instead. It was stable. We will order another for tomorrow. Her creatinine is good at 0.78 with a low potassium of 3.4. Her CT scan for postoperative day 1 from the procedure showed significant amount of lower pole stones still remaining, but the renal pelvic stones are gone. There are some stone fragments in the bladder and smaller ones noted in the superior and mid pole of the right kidney. On the left, there are only 1 to 2 mm fragments remaining. The stent is in place in good position. ASSESSMENT AND PLAN: A 33-year-old female, status post percutaneous nephrolithotomy and got out her main 2 large renal pelvic obstructing stones, but still has significant amount in the lower pole. We discussed that any further therapy would have to be done at least 6 weeks out to allow the kidney to heal, and unfortunately, she will not have insurance at that time, so she will definitely work to try to get insurance. We also reviewed how getting , again, especially this soon would not be healthy for her, but any in the future would increase her stone volume and potentially jeopardize that kidney further. I will replace her potassium and anticipate getting the [place] catheter out tomorrow, and if this tubing from above stays clear, then she can have the tube removed before she goes home. Job ID: [id number] MTDSean
[2018-06-27] MEDS: diphenhydrAMINE 50 MG in Sodium Chloride 0.9% 50 ML IVPB PRN (22:03)
[2018-06-28] MEDS: Acetaminophen/Codeine 30-300mg Tablet PO PRN ×4 (00:32→16:01)
[2018-06-28] MEDS: Lactated Ringer's 1,000 ML IV SCH ×3 (01:57→20:04)
[2018-06-28] MEDS: Morphine 4 MG/ML VIAL SLOW IVP PRN ×3 (02:42→19:39)
[2018-06-28] MEDS: cefTRIAXone\\ROCEPHIN 2 GM in Sodium Chloride 0.9% 100 ML IVPB SCH (04:51)
[2018-06-28 05:32] LABS: Hemoglobin 10.6 g/dL (12.0-16.0)
[2018-06-28 05:49] LABS: Potassium 3.4 mmol/L (3.5-5.1)
[2018-06-28] MEDS: Magnesium Oxide 400 MG TAB PO SCH ×2 (08:56→19:37)
[2018-06-28] MEDS: Docusate 100 MG CAP PO SCH ×2 (08:56→19:36)
[2018-06-28] MEDS: Tamsulosin HCl 0.4 MG CAP PO SCH ×2 (08:57→20:00)
[2018-06-28] MEDS: Famotidine/PF 20 mg/2ml Vial SLOW IVP SCH ×2 (08:59→19:37)
--- NOTE | 2018-06-28 10:26 | PRG ---
DATE OF SERVICE: 06/28/2018 SUBJECTIVE: The patient slept well overnight, although getting up and sitting up in the bed is extremely painful. She has not had anything all night. She did not walk in the [place], she only walked in the room, and she has not been doing well on incentive spirometer. She only had clear liquids because her diet was not advanced, but she can advance this. She has not had nausea or vomiting. OBJECTIVE: VITAL SIGNS: Temperature is 100.0, current 97.9, heart rate was 100 when she was 100.0, back down to 84 and previously in the 80s to 90s with a blood pressure stable 111/56. She had excellent urine output more than 2 L from both the [place] and the nephrostomy tube. HEART: Regular rate and rhythm. LUNGS: Clear to auscultation bilaterally with decreased breath sounds in the right base. LABORATORY DATA: On the incentive spirometer, she could only get between 500 and 1000. Her H and H are 10.6 and 31.9. I plugged the nephrostomy tube, both of the tubes had clear yellow urine draining. ASSESSMENT: We have a 33-year-old female, status post percutaneous nephrolithotomy with the large renal pelvic stones, now removed but still significant lower pole disease present, doing well except for a poor inspiratory effort and poor ambulation. She should get up and start moving around, try to stick to oral pain medicines, but IV are still accessible if she needs them, and work more incentive spirometry for pulmonary toilet. As long as she tolerates the catheter being plugged, we will remove the [place] catheter from below. Job ID: [id number]
[2018-06-28] MEDS: diphenhydrAMINE 50 MG in Sodium Chloride 0.9% 50 ML IVPB PRN (19:58)
[2018-06-29] MEDS: Morphine 4 MG/ML VIAL SLOW IVP PRN ×2 (05:26)
[2018-06-29] MEDS: cefTRIAXone\\ROCEPHIN 2 GM in Sodium Chloride 0.9% 100 ML IVPB SCH (05:28)
[2018-06-29] MEDS: Tamsulosin HCl 0.4 MG CAP PO SCH (07:58)
[2018-06-29] MEDS: Acetaminophen/Codeine 30-300mg Tablet PO PRN ×2 (07:58→12:58)
[2018-06-29] MEDS: Docusate 100 MG CAP PO SCH (07:59)
[2018-06-29] MEDS: Magnesium Oxide 400 MG TAB PO SCH (07:59)
[2018-06-29] MEDS: Famotidine/PF 20 mg/2ml Vial SLOW IVP SCH (07:59)
[2018-06-29] MEDS: Lactated Ringer's 1,000 ML IV SCH (08:04)
[2018-06-29 10:11] VITALS: BP 118/70; TEMP 98.6
--- NOTE | 2018-06-29 20:33 | DIS ---
DATE OF ADMISSION: 06/25/2018 DATE OF DISCHARGE: 06/29/2018 The patient was admitted on 06/25/2018 with a diagnosis of right staghorn calculi. She underwent attempts at percutaneous nephrostomy tube by Interventional Radiology with significant difficulty and they were unable to place anything, so we had to re-attempt this in the operating room prior to percutaneous nephrolithotomy. She underwent this on 07/24/2018 and a significant portion of the procedure was spent trying to just gain access again with the help of Interventional Radiology and then once we were, she was able to undergo successful percutaneous nephrolithotomy but only for the renal pelvic large stones and unable to access the lower pole. This was demonstrated by CT scan on postop day 1. Her H and H had a small drop, which was expected and her potassium was a little low and it was replaced in the postoperative period. Otherwise, her urethral Camarillo was removed. Her percutaneous nephrostomy tube was removed. She still has an indwelling remaining stent. She will be discharged on Bactrim with Tylenol No. 3, as well as tamsulosin. She will follow up in the office for stent removal and she will leave urine the week before. By the day of discharge, she was ambulating, tolerating the diet, and voiding without difficulty. The urine was pink tinged and there was clear urine drainage from the percutaneous nephrostomy tube site upon discharge. We reviewed how this will continue to drain for the next 24 to 48 hours. Job ID: [id number]
[2018-06-30 09:15] LABS: CA Phosphate 93 % (.); Color Brown (.); Comment Note: (.); Stone Weight 7417.3 mg (.)
== END 2018-06-29 17:10 | disposition home or self-care (01) | DRG 654 ==
LOC: ONC 06-25 09:03
PROVIDERS: ADMIT Urology; ATTEND Urology
PROC: 0TC38ZZ Extirpation of Matter from Right Kidney Pelvis, Via Natural or Artificial Opening Endoscopic (ICD-10-PCS; principal; 2018-06-26)
PROC: 0T7B8DZ Dilation of Bladder with Intraluminal Device, Via Natural or Artificial Opening Endoscopic (ICD-10-PCS; 2018-06-26)
PROC: 0T738DZ Dilation of Right Kidney Pelvis with Intraluminal Device, Via Natural or Artificial Opening Endoscopic (ICD-10-PCS; 2018-06-26)
PROC: 0TP98DZ Removal of Intraluminal Device from Ureter, Via Natural or Artificial Opening Endoscopic (ICD-10-PCS; 2018-06-26)
PROC: BT1D1ZZ Fluoroscopy of Right Kidney, Ureter and Bladder using Low Osmolar Contrast (ICD-10-PCS; 2018-06-26)
DX: N20.2 Calculus of kidney with calculus of ureter (principal); N39.0 Urinary tract infection, site not specified; N21.0 Calculus in bladder; Z87.440 Personal history of urinary (tract) infections; Z88.5 Allergy status to narcotic agent; E87.6 Hypokalemia
CPT/HCPCS: 36415; 50433; 71046; 74150; 74176; 74425; 80048; 81025; 82365; 84132; 85014; 85018; 85025; 86850; 86900; 86901; 88300; C1758; C1769; J0131; J0696; J1100; J1200; J2001; J2250; J2270; J2405; J2704; J2765; J3010; J7050; Q9961; S0028

== ENCOUNTER 2018-06-21 10:01 | Outpatient (CLI) | payer OTHER ==
[2018-06-21 11:29] LABS: Hemoglobin 12.8 g/dL (12.0-16.0); Mean Corpuscular HGB CONC 32.5 g/dL (32.0-36.0); Mean Corpuscular Hemoglobin 28.7 pg (27.0-31.0); Mean Corpuscular Volume 88.1 fL (78.0-98.0); Mean Platelet Volume 6.6 fL (7.4-10.4); Platelet Count 252 thou/uL (130-400); RBC Distribution Width 11.6 % (11.5-14.5); Red Blood Cell (RBC) Count 4.47 mill/uL (4.20-5.40); White Blood Cell (WBC) Count 6.7 thou/uL (4.8-10.8)
[2018-06-21 11:35] LABS: INR-International Normal Ratio 0.9; PTT 28.5 SEC (22.9-36.1); Prothrombin Time 12.3 SEC (12.0-14.7)
[2018-06-21 11:36] LABS: BHCG - Serum Negative (NEGATIVE); Pregs Control Background? CLEAR/WHITE (CLR/WHITE); Pregs Control Bar Appear? YES (CONTROL BAR)
[2018-06-21 11:56] LABS: Anion Gap 11 mmol/L (10-20); BUN (Urea Nitrogen) 13 mg/dL (7.0-18.7); Calc. Creatinine Clearance 0 mL/min (70-130); Calcium 9.6 mg/dL (7.8-10.44); Carbon Dioxide 26 mmol/L (22-29); Chloride 107 mmol/L (98-107); Estimated GFR-MDRD 75; Glucose 86 mg/dL (70-105); Sodium 140 mmol/L (136-145)
== END 2018-06-21 10:02 | disposition home or self-care (01) ==
LOC: LABBT 10:01
PROVIDERS: ATTEND Urology
DX: Z01.812 Encounter for preprocedural laboratory examination (principal); N20.0 Calculus of kidney
CPT/HCPCS: 80048; 84703; 85027; 85610; 85730; 86850; 86900; 86901

== ENCOUNTER 2018-07-02 20:53 | Inpatient (IN) | payer OTHER ==
[2018-07-02] MEDS ORDERED: Ketorolac Tromethamine 30 MG/ML VIAL ONE (21:08)
[2018-07-02] MEDS ORDERED: Ondansetron PF 4 MG/2 ML Vial ONE (21:08)
[2018-07-02] MEDS ORDERED: Fentanyl 100 MCG/2 ML VIAL ONE (21:08)
[2018-07-02 21:28] LABS: #Eosinphils 0.2 thou/uL (0.0-0.7); #Lymphocytes 3.7 thou/uL (1.20-3.40); #Monocytes 1.1 thou/uL (0.11-0.59); #Neutrophils 5.6 thou/uL (1.40-6.50); %Basophils 0.5 % (0.0-1.0); %Eosinophils 2.1 % (0.0-10.0); %Lymphocytes 34.5 % (21.0-51.0); %Monocytes 10.6 % (0.0-10.0); %Neutrophils 52.3 % (42.0-75.0); Hemoglobin 13.7 g/dL (12.0-16.0); Mean Corpuscular HGB CONC 31.1 g/dL (32.0-36.0); Mean Corpuscular Hemoglobin 27.6 pg (27.0-31.0); Mean Corpuscular Volume 88.8 fL (78.0-98.0); Mean Platelet Volume 6.2 fL (7.4-10.4); Platelet Count 439 thou/uL (130-400); Red Blood Cell (RBC) Count 4.95 mill/uL (4.20-5.40); White Blood Cell (WBC) Count 10.7 thou/uL (4.8-10.8)
[2018-07-02 21:42] LABS: Bilirubin Negative (Negative); Blood, Urine Large (Negative); Clarity CLOUDY (Clear); Glucose, Urine (Dipstick) Negative (Negative); Leukocyte Large (Negative); Nitrite Negative (Negative); Protein, Urine (Dipstick) 100 mg/dL (Neg-Trace); Specific Gravity, Urine 1.017 (1.002-1.036); pH, Urine 7.5 (5.0-9.0)
[2018-07-02 21:43] LABS: Squamous Epithelial 0-3 HPF (0-3)
[2018-07-02 21:48] LABS: Yeast-AUWi Flag 80.3 (0-25.0)
[2018-07-02 21:49] LABS: Pathc Cast-AUWi Flag 3.08 (0-2.49)
[2018-07-02 21:51] LABS: ALT (SGPT) 15 U/L (8-55); AST (SGOT) 15 U/L (5-34); Albumin 4.5 g/dL (3.5-5.0); Alkaline Phosphatase 132 U/L (40-150); Anion Gap 16 mmol/L (10-20); BUN (Urea Nitrogen) 19 mg/dL (7.0-18.7); Bilirubin, Total 0.3 mg/dL (0.2-1.2); Calc. Creatinine Clearance 0 mL/min (70-130); Carbon Dioxide 26 mmol/L (22-29); Chloride 101 mmol/L (98-107); Estimated GFR-MDRD 70; Glucose 89 mg/dL (70-105); Lipase 46 U/L (8-78); Potassium 3.6 mmol/L (3.5-5.1); Protein, Total 8.5 g/dL (6.0-8.3); Sodium 139 mmol/L (136-145)
[2018-07-02] MEDS ORDERED: Piperacillin/Tazobactam 3.375 GM VIAL ONE (21:54)
[2018-07-02 21:58] LABS: RBC/HPF GREATER THAN 50-TNTC HPF (0-3)
[2018-07-02 22:00] LABS: Bacteria/HPF 2+ HPF (None Seen); Hyaline Casts/LPF NONE SEEN LPF (0-3 Hyaline)
--- NOTE | 2018-07-02 22:42 | CT ---
CT OF ABDOMEN AND PELVIS PERFORMED WITHOUT CONTRAST ENHANCEMENT: History: Patient had a right sided lithotripsy on 06-25-18. Reports right sided flank pain and vaginal bleeding since Monday. Comparison: 06-27-18 FINDINGS: There is a small right sided pleural effusion. There are some minimal atelectatic changes in the lung bases. Liver, spleen, and pancreas regions appear unremarkable. Gallstone is noted. Right and left adrenal glands are normal in appearance. Punctate left sided nonobstructing renal calc suresh are again seen. This appears to be a fairly stable finding as compared to the prior examination. There is a lobulated contour to the left kidney making it difficult to exclude mass but this is proba gio related to lobulation. The right ureteral stent remains in place. The proximal end within the rico al pelvis distally, it is within the right side of the bladder. There is persistent air present withi n the collecting system, this is minimally reduced as compared to the prior examination. Still extens evelina stone burden is seen. The right sided percutaneous nephrostomy tube has been removed. The degree of dilatation of the collecting system has not changed. IMPRESSION: 1. Interval removal of the right sided percutaneous nephrostomy tube with a right ureteral stent in p lace. Considerable stone burden within the right kidney is still noted. There is slightly decreased a ir within the right collecting system as compared to the prior examination. Otherwise, no change in t he collecting system appearance. 2. Punctate nonobstructing left renal calculi. 3. Gallstone. POS: Mohamud
[2018-07-03] MEDS ORDERED: Sodium Chloride 0.9% 1,000 ML IV SCH (02:46)
--- NOTE | 2018-07-03 03:18 | HP ---
PRIMARY CARE PHYSICIAN: None. CHIEF COMPLAINT: Right flank pain. HISTORY OF PRESENT ILLNESS: The patient is a 33-year-old female with past medical history of renal stone, who presents to the emergency department for severe right flank pain. The patient did not report any fever, but reports chills. The patient was recently admitted on 25 of June and was discharged on the 29 of June. The patient was admitted with Urology Service for the diagnosis of right staghorn calculi. The patient underwent percutaneous nephrostomy tube by Radiology which was significantly difficult and in the operating room, the patient had 2 percutaneous nephrolithiasis. The patient had stents placed and she was discharged to home on Bactrim and Tylenol No. 3 as well as Flomax. The patient was supposed to follow up with Urology after discharge. The patient reports compliant with her medication. The patient was seen in the ER and was given pain medications. The patient was given Zosyn as well. Case was discussed with urologist, Dr. Doran, who recommended medical admission. PAST MEDICAL HISTORY: Renal stone. FAMILY HISTORY: Renal stone. ALLERGIES: HYDROCODONE. HOME MEDICATIONS: Include; 1. Flomax. 2. Bactrim. PAST SURGICAL HISTORY: Nephrolithiasis and ureteral stent placement. FAMILY HISTORY: Multiple renal stones in the family. REVIEW OF SYSTEMS: 10-point review of system negative other than mentioned in the HPI. PHYSICAL EXAMINATION: VITAL SIGNS: Blood pressure 112/74, pulse 94, respiratory rate 18, temperature 97.9, O2 saturation 98% on room air. GENERAL: The patient is alert. HEENT: Head, atraumatic. Ears, nose, and throat; no discharge or bleeding noted. Eyes, extraocular movements intact. NECK: No lymphadenopathy. CARDIOVASCULAR: Regular rate and rhythm. No murmurs, rubs, or gallops. PULMONARY: Clear bilaterally. No wheezes noted. ABDOMEN: Soft, nontender. Bowel sounds hypoactive. Right CVA. Site of attempted right nephrostomy tube noted to be clean and no infection noted, but area was tender. NEUROLOGICAL: The patient is alert. SKIN: No rashes noted. LABORATORY DATA: WBC to 10.7, hemoglobin 13.7, hematocrit 43.9, platelets 439. Sodium 139, potassium 3.6, chloride 101, carbon dioxide 26, BUN 19, creatinine 0.91, glucose 89. Lactic acid is 1.7. Urinalysis is significant for leukocyte esterase, white blood cell, and bacteria positive. CT abdomen and pelvis reviewed, showed; 1. Interval removal of the right-sided percutaneous nephrostomy tube with right ureteral stent placement, considerable stone burden within the right kidney is still noted. There is slight decrease in air within the right collecting system as compared to prior examination. Otherwise, no changes in the collecting system appearance. 2. Punctate nonobstructing left renal stone. 3. Gallstones. ASSESSMENT AND PLAN: 1. Pyelonephritis. 2. Nephrolithiasis. The patient is being admitted for pyelonephritis. The patient is status post stent placement with Urology. Urology was consulted on admission by ER and they recommended medical management. The patient was given Zosyn in the ER. We will continue ceftriaxone. We will follow blood cultures at this point. Pain control management. IV fluids. The patient is n.p.o. in the morning for possible procedure in morning. Zofran p.r.n. The patient is full code. Medical power of [place] attorney, . DVT prophylaxis addressed. Job ID: [id number]
[2018-07-03] MEDS: cefTRIAXone\\ROCEPHIN 1 GM in Sodium Chloride 0.9% 100 ML IVPB SCH (03:44)
[2018-07-03] MEDS: Acetaminophen 325 MG TAB PO PRN ×2 (06:53→22:43)
[2018-07-03 07:53] LABS: Anion Gap 11 mmol/L (10-20); BUN (Urea Nitrogen) 20 mg/dL (7.0-18.7); Calc. Creatinine Clearance 0 mL/min (70-130); Calcium 8.4 mg/dL (7.8-10.44); Carbon Dioxide 20 mmol/L (22-29); Chloride 111 mmol/L (98-107); Estimated GFR-MDRD Greater than 90; Glucose 87 mg/dL (70-105); Potassium 3.7 mmol/L (3.5-5.1); Sodium 138 mmol/L (136-145)
[2018-07-03 07:59] LABS: #Eosinphils 0.2 thou/uL (0.0-0.7); #Lymphocytes 2.7 thou/uL (1.20-3.40); #Monocytes 0.8 thou/uL (0.11-0.59); #Neutrophils 2.8 thou/uL (1.40-6.50); %Basophils 0.6 % (0.0-1.0); %Eosinophils 3.8 % (0.0-10.0); %Lymphocytes 40.5 % (21.0-51.0); %Monocytes 12.5 % (0.0-10.0); %Neutrophils 42.7 % (42.0-75.0); Mean Corpuscular HGB CONC 31.8 g/dL (32.0-36.0); Mean Corpuscular Hemoglobin 28.6 pg (27.0-31.0); Mean Platelet Volume 6.3 fL (7.4-10.4); Platelet Count 253 thou/uL (130-400); RBC Distribution Width 11.7 % (11.5-14.5); Red Blood Cell (RBC) Count 3.86 mill/uL (4.20-5.40); White Blood Cell (WBC) Count 6.6 thou/uL (4.8-10.8)
[2018-07-03] MEDS: Ketorolac Tromethamine 10 MG TAB PO PRN ×2 (09:15→17:55)
[2018-07-03] MEDS: Lactated Ringer's 1,000 ML IV SCH ×3 (13:20→20:48)
--- NOTE | 2018-07-03 13:24 | PDOC.PN ---
- Subjective Encounter Start Date: 07/03/18 Encounter Start Time: 13:22 Ms. Torres was seen today in follow-up of nephrolithiasis and UTI. She says the flank pain has improved, as well as she is feeling " less terrible". - Objective Resuscitation Status - Order Detail: 07/03/18 02:36 Resuscitation Status Routine Resuscitation Status: FULL: Full Resuscitation MAR Reviewed: Yes Vital Signs & Weight: Vital Signs (12 hours) Temp Pulse Resp BP Pulse Ox 07/03/18 11:57 97.9 F 63 20 95/52 L 07/03/18 08:00 97.6 F 75 20 108/59 L 97 07/03/18 02:25 97.7 F 72 16 118/59 L 97 Weight Admit Weight 175 lb Weight 175 lb I&O: 07/02/18 07/03/18 07/04/18 06:59 06:59 06:59 Intake Total 338 Output Total 280 Balance 58 Result Diagrams: 07/03/18 06:49 07/03/18 06:49 Phys Exam - Physical Examination HEENT: PERRLA Respiratory: no wheezing, no rales, no rhonchi, clear to auscultation bilateral Cardiovascular: RRR, no significant murmur, no rub Gastrointestinal: soft, non-tender, no distention, positive bowel sounds Musculoskeletal: no edema Dx/Plan (1) Bilateral nephrolithiasis Code(s): N20.0 - CALCULUS OF KIDNEY Status: Acute (2) UTI (urinary tract infection) Status: Acute - Plan * Nephrolithiasis with UTI- continue Rocephin and await culture results * Await further recommendations with regards to the renal stone from Urologist.
[2018-07-03] MEDS ORDERED: Tamsulosin HCl 0.4 MG CAP PO SCH (14:00)
--- NOTE | 2018-07-03 15:13 | RAD ---
PA AND LATERAL CHEST: History: Pain with deep inspiration. FINDINGS: Heart size and mediastinum are within normal limits. The lungs are clear of any infiltrates. There is some linear atelectasis versus scar in the left base. Minimal blunting to the posterior sulci are no norma and some tiny effusions. IMPRESSION: Linear atelectasis in the left base with what appear to be tiny bilateral effusions. POS: TPC
[2018-07-03] MEDS ORDERED: Ondansetron PF 4 MG/2 ML Vial SLOW IVP PRN (18:42)
[2018-07-03] MEDS ORDERED: Ondansetron ODT 4 MG TAB PO PRN (18:42)
[2018-07-03] MEDS: Tamsulosin HCl 0.4 MG CAP PO SCH (20:47)
--- NOTE | 2018-07-03 21:03 | CON ---
DATE OF CONSULTATION: 07/03/2018 REASON FOR CONSULTATION: Consultation was requested for concern for pyelonephritis. HISTORY OF PRESENT ILLNESS: The patient is a 33-year-old female, who was recently discharged after right percutaneous nephrolithotomy that was very difficult on placement for interventional and ultimately able to only access the renal pelvic stone volume, leaving her with some significant left lower pole stones, but she did well during that hospital stay and was discharged after the percutaneous nephrostomy tube was removed. She has an indwelling stent. She had called on the day of admission complaining about some vaginal bleeding and pain and ultimately that is what she presented with, her pain was in the right middle upper quadrant. It did seem a little worse when she took a deep breath in. She was having nausea, but no vomiting. The pain did not seem associated with intake. She has had no change in her bowel. She had significant night sweats, but it was not sure if she had a fever. PAST MEDICAL HISTORY: Significant for stone disease, which has been difficult to treat given her pregnancies, which she delivered in April and followed up appropriately to manage her right staghorn. PAST SURGICAL HISTORY: Includes x1, tubal ligation reversal, left ESWL and a right stent on 05/29/2018 and the above-mentioned right percutaneous nephrolithotomy from 06/26/2018. MEDICATIONS: Include: 1. Tamsulosin twice a day. 2. She was sent out on Bactrim and was still taking this, and pain medicine. ALLERGIES: NORCO CAUSES ITCHING. SOCIAL HISTORY: She is not a smoker. Does not drink or do drugs. She lives at home with her 9 children and . FAMILY HISTORY: Mom and dad are alive and healthy. REVIEW OF SYSTEMS: She does have the pain with deep inspiration, but she is not coughing up anything. No diarrhea. No constipation. Hard to tell whether she has blood because she has been having the significant vaginal bleeding and cramping with this. PHYSICAL EXAMINATION: GENERAL: She appears comfortable in the bed. She reports the pain is 7/10 previously it was 10/10. VITAL SIGNS: T-max has been 97.9, heart rate in the 60s to 70s, blood pressure in the systolic of 90s and one teens, saturating 97% on room air. 250+"toilet" for UOP. HEENT: No jaundice or scleral icterus. No JVD. HEART: Regular rate and rhythm. No murmurs, gallops, or rubs. LUNGS: Clear to auscultation bilaterally. ABDOMEN: Soft, nondistended, and nontender with no Urban sign. Normoactive bowel sounds. Her dressing was removed from her right flank incision and this is clean and dry without any discharge. EXTREMITIES: She had no lower extremity edema. She had no concerns for her Homans sign. She had no diaphoresis nor hyperemia. LABORATORY VALUES: Reveal a white count of 10.7 down to 6.6. Her hemoglobin and hematocrit have been diluted down with hydration to 11.0 and 34.7, platelets are 253. Creatinine reveals 0.72. Urine upon admission showed too numerous to count wbc's, too numerous to count rbc's, 2+ bacteria, and 0 to 3 squamous cells. I am hoping there is a culture pending. DIAGNOSTIC DATA: CT scan reviewed personally without contrast was compared to the week prior. There was no concern for EEG findings. The stent was in place accessing the renal pelvis and upper pole with no stone fragments along the line of the stent, but the significant lower pole stone fragments remaining with air in the collecting system as previously seen as well. ASSESSMENT: We have a 33-year-old female with significant abdominal pain that can be attributed to concern for pyelonephritis since it appears she is not on a good antibiotic; although, her last cultures were sensitive to everything. She is already feeling better after admission. She also has significant vaginal bleeding that I think is just a change in her periods from recent , but also could be contributing to abdominal pain. At this point, I will continue Rocephin and await for culture to be back to know what to send her back out on and she will need at least 2 to 4 more weeks of this depending on what grows; now she clinically does. I would also order a chest x-ray just based on her concern with pain with inspiration. I will add the tamsulosin b.i.d. back on and she can eat and drink at this time. Job ID: [id number] MTDD
[2018-07-03] MEDS: diphenhydrAMINE 25 MG CAP PO PRN (22:43)
[2018-07-04] MEDS: cefTRIAXone\\ROCEPHIN 1 GM in Sodium Chloride 0.9% 100 ML IVPB SCH (03:30)
[2018-07-04] MEDS: Ketorolac Tromethamine 10 MG TAB PO PRN (03:37)
[2018-07-04] MEDS: Lactated Ringer's 1,000 ML IV SCH ×3 (03:37→22:05)
[2018-07-04] MEDS: Acetaminophen 325 MG TAB PO PRN (08:36)
[2018-07-04] MEDS: Tamsulosin HCl 0.4 MG CAP PO SCH ×2 (08:36→20:37)
--- NOTE | 2018-07-04 13:32 | PRG ---
DATE OF SERVICE: 07/04/2018 The patient looks and feels significantly better. She is still having difficulty with deep inspiration, but otherwise has minimal pain today. She is eating okay and urinating without difficulty. Her vitals have been stable with T-max of 98.3, saturating 96% on room air, and 1760 out over the last 24 hours. She can do a 1000 on incentive spirometer and reports that previously she got up to 1500. There is some right flank pain with deep inspiration, but otherwise no other chest pain or abdominal pain and this is within normal limits from a recent percutaneous nephrolithotomy. No new labs. Though, the chest x-ray report that came back showing atelectasis with possible tiny bilateral effusions, but otherwise there are no concerning findings. In assessment, we have a 33-year-old female, status post percutaneous nephrolithotomy to rid her of renal pelvic stones that were quite large, but now with large lower pole stone volume remaining, who was readmitted with significant vaginal bleeding more than a normal period, but it likely just changed because of the recent as well as concern for pyelonephritis based on a 2+ bacteria in the urine despite being sent home on Bactrim, so she was currently given Rocephin and I would continue this until the culture is back. We did discuss the possibility of the culture being negative and then having to just guess at the antibiotics to send her out on, but hopefully, there will be a specific organism with sensitivities. If blood cultures are positive, she needs 4 weeks of antibiotics. Otherwise, I will recommend antibiotics to keep her on until we get the stent out in approximately 3 to 4 weeks' time. Job ID: [id number] [facility]
--- NOTE | 2018-07-04 15:48 | PDOC.PN ---
- Subjective Encounter Start Date: 07/04/18 Encounter Start Time: 13:15 Ms. Torres was seen today in follow-up of Pyelonephritis, and Nephrolithiasis. She says she feels much better today. She denies any pain. - Objective Resuscitation Status - Order Detail: 07/03/18 02:36 Resuscitation Status Routine Resuscitation Status: FULL: Full Resuscitation Vital Signs & Weight: Vital Signs (12 hours) Temp Pulse Resp BP BP Pulse Ox 07/04/18 11:58 98.4 F 82 16 109/68 96 07/04/18 08:00 98.0 F 72 16 100/65 98 07/04/18 03:52 97.5 F L 65 16 112/70 96 Weight Admit Weight 175 lb Weight 175 lb I&O: 07/03/18 07/04/18 07/05/18 06:59 06:59 06:59 Intake Total 338 3587 Output Total 280 1760 Balance 58 1827 Result Diagrams: 07/03/18 06:49 07/03/18 06:49 Phys Exam - Physical Examination HEENT: PERRLA Respiratory: no wheezing, no rales, no rhonchi, clear to auscultation bilateral Cardiovascular: RRR, no significant murmur, no rub Gastrointestinal: soft, non-tender, no distention, positive bowel sounds Musculoskeletal: no edema Dx/Plan (1) Bilateral nephrolithiasis Code(s): N20.0 - CALCULUS OF KIDNEY Status: Acute (2) UTI (urinary tract infection) Status: Acute - Plan * Pyelonephritis- continue Rocephin for now, ad she is improving on the antibiotic * Urine culture is negative so far * Case discussed with Dr. Ling * Hopefully home tomorrow on oral antibiotics.
[2018-07-04] MEDS: diphenhydrAMINE 25 MG CAP PO PRN (22:04)
[2018-07-05] MEDS: cefTRIAXone\\ROCEPHIN 1 GM in Sodium Chloride 0.9% 100 ML IVPB SCH (03:03)
[2018-07-05] MEDS: Lactated Ringer's 1,000 ML IV SCH ×2 (05:57→08:07)
[2018-07-05] MEDS: Tamsulosin HCl 0.4 MG CAP PO SCH (08:02)
[2018-07-05 08:10] VITALS: BP 114/75; TEMP 98.1
--- NOTE | 2018-07-05 08:37 | PRG ---
DATE OF SERVICE: 07/05/2018 SUBJECTIVE: The patient did well overnight. Her pain is well controlled and has minimal at this time. She is eager to leave. OBJECTIVE: VITAL SIGNS: Her vitals have been stable. T-max 98.2, heart rate in the 70s, blood pressure 114/75. She has had excellent urine output with over 2 L in the last 24 hours. LABORATORY DATA: There are no new labs to report, but the culture did come back for definitive final that unfortunately had nothing grown. ASSESSMENT: We have a 33-year-old female, status post percutaneous nephrolithotomy last week, who was readmitted with significant vaginal bleeding and abdominal pain with persistent bacteria, but unfortunately no positive culture, so we will switch her from the Bactrim that she was on as an outpatient to Omnicef and send her out on 3 weeks of that. She already has follow up for her stent removal with me in the office. Job ID: [id number]
--- NOTE | 2018-07-06 09:03 | DIS ---
DATE OF ADMISSION: 07/02/2018 DATE OF DISCHARGE: 07/05/2018 The patient does not have a primary care physician DISCHARGE DISPOSITION: Home. DISCHARGE DIAGNOSES: 1. Pyelonephritis. 2. Nephrolithiasis. DISCHARGE MEDICATIONS: Include, 1. Omnicef 300 mg twice a day for 3 weeks. 2. Flomax 0.4 mg daily. PROCEDURES DONE DURING ADMISSION: The patient had a CT scan of the abdomen and pelvis, showing interval removal of a right-sided percutaneous nephrostomy tube with a right ureteral stent in place. A considerable stone burden in the right kidney was still noted. There was a slight decrease in air in the right collecting system as compared to the prior exam. There is a gallstone and a punctate nonobstructing left renal stone. CODE STATUS: Full code. ALLERGIES: TO HYDROCODONE. HOSPITAL COURSE: Ms. Torres is a pleasant 33-year-old female who has a history of nephrolithiasis and recent nephrostomy tubes with removal. She began having severe right flank pain as well as chills. She felt generally bad all over. She was evaluated in the ER and found to have a urine consistent with a urinary tract infection with 2+ bacteria and too numerous to count wbc's. That with the flank pain and her previous history, she was diagnosed with pyelonephritis as well as retained nephrolithiasis. She was started on IV antibiotics and improved over the course of the next couple of days. Her urologist was also consulted. Unfortunately since she had been on antibiotics prior to admission, her urine cultures were unrevealing and were negative. Since she had improved on Rocephin as a single antibiotic, she will be discharged home on Omnicef for 3 weeks and to follow up with Dr. Ling for further recommendations with regard to the retained right renal stone. Job ID: [id number]
== END 2018-07-05 10:23 | disposition home or self-care (01) | DRG 690 ==
LOC: ERS 20:53 → ERHOLD 23:05 → 3SE 07-03 02:22 → SURG A 07-03 20:56
PROVIDERS: ADMIT Family Medicine; ATTEND Family Medicine
DX: N12 Tubulo-interstitial nephritis, not specified as acute or chronic (principal); N20.0 Calculus of kidney; N39.0 Urinary tract infection, site not specified; Z87.442 Personal history of urinary calculi
CPT/HCPCS: 36415; 71046; 74176; 80048; 80053; 81003; 81015; 83605; 83690; 85025; 87040; 87086; 87804; 93005; 96361; 96365; 96375; J0696; J1885; J2405; J2543; J3010; J7050; Q0163

== ENCOUNTER 2019-07-13 21:41 | Inpatient (IN) | payer MEDICAID, OTHER ==
[2019-07-13] MEDS ORDERED: Ondansetron PF 4 MG/2 ML Vial ONE (22:17)
[2019-07-13] MEDS ORDERED: Acetaminophen 500 MG TAB ONE (22:17)
[2019-07-13] MEDS ORDERED: Morphine 4 MG/ML VIAL ONE (22:17)
[2019-07-13 22:33] LABS: #Eosinphils 0.1 thou/uL (0.0-0.7); #Lymphocytes 2.2 thou/uL (1.20-3.40); #Monocytes 0.7 thou/uL (0.11-0.59); #Neutrophils 9.5 thou/uL (1.40-6.50); %Basophils 0.1 % (0.0-1.0); %Eosinophils 0.7 % (0.0-10.0); %Lymphocytes 17.4 % (21.0-51.0); %Monocytes 5.8 % (0.0-10.0); %Neutrophils 75.9 % (42.0-75.0); Hemoglobin 13.2 g/dL (12.0-16.0); Mean Corpuscular HGB CONC 35.1 g/dL (32.0-36.0); Mean Corpuscular Hemoglobin 30.4 pg (27.0-31.0); Mean Corpuscular Volume 86.6 fL (78.0-98.0); Mean Platelet Volume 6.7 fL (7.4-10.4); Platelet Count 262 thou/uL (130-400); RBC Distribution Width 13.8 % (11.5-14.5); Red Blood Cell (RBC) Count 4.35 mill/uL (4.20-5.40); White Blood Cell (WBC) Count 12.5 thou/uL (4.8-10.8)
[2019-07-13 22:36] LABS: Bilirubin Negative (Negative); Blood, Urine 2+ (Negative); Clarity Turbid (Clear); Glucose, Urine (Dipstick) Normal (Negative); Leukocyte 500 Leu/uL (Negative); Nitrite Negative (Negative); Protein, Urine (Dipstick) 30 mg/dL (Neg-Trace); RBC/HPF 21-50 HPF (0-3); Renal Epithelial 0-3 HPF (None Seen); Squamous Epithelial 21-50 HPF (0-3); Urobilinogen Normal mg/dL (Less than 2); WBC/HPF 21-50 HPF (0-3)
[2019-07-13 22:39] LABS: Bacteria/HPF 3+ HPF (None Seen)
[2019-07-13 22:50] LABS: ALT (SGPT) 12 U/L (8-55); AST (SGOT) 14 U/L (5-34); Albumin 3.8 g/dL (3.5-5.0); Alkaline Phosphatase 91 U/L (40-110); Anion Gap 13 mmol/L (10-20); BUN (Urea Nitrogen) 10 mg/dL (7.0-18.7); Bilirubin, Total 0.3 mg/dL (0.2-1.2); Calc. Creatinine Clearance 0 mL/min (70-130); Calcium 9.8 mg/dL (7.8-10.44); Carbon Dioxide 24 mmol/L (22-29); Chloride 105 mmol/L (98-107); Estimated GFR-MDRD 87; Globulin 3.4 g/dL (2.4-3.5); Glucose 100 mg/dL (70-105); Potassium 3.7 mmol/L (3.5-5.1); Protein, Total 7.2 g/dL (6.0-8.3); Sodium 138 mmol/L (136-145)
[2019-07-13] MEDS ORDERED: cefTRIAXone\\ROCEPHIN 2 GM VIAL ONE (23:44)
[2019-07-14] MEDS ORDERED: Acetaminophen 325 MG TAB PO PRN (00:05)
[2019-07-14] MEDS ORDERED: Morphine 4 MG/ML VIAL SLOW IVP PRN (00:09)
[2019-07-14] MEDS ORDERED: Morphine 2 MG/ML SYRINGE SLOW IVP PRN (00:09)
--- NOTE | 2019-07-14 00:14 | PDOC.FPRHP ---
- Allergies/Adverse Reactions Allergies Allergy/AdvReac Type Severity Reaction Status Date / Time hydrocodone Allergy severe Verified 06/21/18 10:25 itching - Home Medications Medication Instructions Recorded Confirmed Type Tamsulosin HCl 0.4 mg PO DAILY PRN 06/21/18 07/14/19 History Nitrofurantoin Macrocrystal 100 mg PO BID 07/14/19 07/14/19 History [Nitrofurantoin] - History PMHx: PSHx: FHx: Social: - Vital signs BP: [] HR: [] RR: [] Tmax: [] Pox: []% on [] Wt: [] FMR H&P: Results - Labs Result Diagrams: 07/13/19 22:24 07/13/19 22:24 Lab results: WBC 12.5 thou/uL (4.8-10.8) H 07/13/19 22:24 Hgb 13.2 g/dL (12.0-16.0) 07/13/19 22:24 Hct 37.7 % (36.0-47.0) 07/13/19 22:24 MCV 86.6 fL (78.0-98.0) 07/13/19 22:24 Plt Count 262 thou/uL (130-400) 07/13/19 22:24 Neutrophils % 75.9 % (42.0-75.0) H 07/13/19 22:24 Sodium 138 mmol/L (136-145) 07/13/19 22:24 Potassium 3.7 mmol/L (3.5-5.1) 07/13/19 22:24 Chloride 105 mmol/L (98-107) 07/13/19 22:24 Carbon Dioxide 24 mmol/L (22-29) 07/13/19 22:24 BUN 10 mg/dL (7.0-18.7) 07/13/19 22:24 Creatinine 0.75 mg/dL (0.6-1.1) 07/13/19 22:24 Glucose 100 mg/dL (70-105) 07/13/19 22:24 Calcium 9.8 mg/dL (7.8-10.44) 07/13/19 22:24 Total Bilirubin 0.3 mg/dL (0.2-1.2) 07/13/19 22:24 AST 14 U/L (5-34) 07/13/19 22:24 ALT 12 U/L (8-55) 07/13/19 22:24 Alkaline Phosphatase 91 U/L (40-110) 07/13/19 22:24 Serum Total Protein 7.2 g/dL (6.0-8.3) 07/13/19 22:24 Albumin 3.8 g/dL (3.5-5.0) 07/13/19 22:24 Urine Ketones Negative mg/dL (Negative) 07/13/19 21:50 Urine Blood 2+ (Negative) A 07/13/19 21:50 Urine Nitrite Negative (Negative) 07/13/19 21:50 Ur Leukocyte Esterase 500 Karl/uL (Negative) A 07/13/19 21:50 Urine RBC 21-50 HPF (0-3) A 07/13/19 21:50 Urine WBC 21-50 HPF (0-3) A 07/13/19 21:50 Ur Squamous Epith Cells 21-50 HPF (0-3) A 07/13/19 21:50 Urine Bacteria 3+ HPF (None Seen) A 07/13/19 21:50 FMR H&P: Upper Level - Plan Date/Time: 07/14/19 0013 PCP: Nicky HPI: This is a 34 yo at 16 wk who comes in for back pain. She states she started having dysuria 2 days ago and tried to flush out her kidneys with fluids. She is having sharp/throbbing back pain which started 3-4 hours ago and is radiating to her abdomen. She states this is exactly like past episodes of nephrolithiasis she has had. She denies fevers, chills, or sweats. She did have one episode of vomiting. She is tolerating PO. Her most recent positive urine culture is from May 2018, it showed nagel- sensitive e.coli and strep pasteurianus. She was treated successfully with rocephin at that time. OB Hx: successful x2, Hx of twin gestation, Hx gestational HTN, Hx Oligohydramnios PMH: Nephrolithiasis PSH: ureteral stent, lithotripsy, percutaneous nephrostomy tube Meds: Flomax, macrobid Allergies: [place]co Soc Hx: denies smoking, alc, drugs Fm hx: hx of nephrolithiasis REVIEW OF SYSTEMS: Gen: no fever, chills, or sweats Neuro: denies headache Eyes: no visual changes ENT: no hearing changes, no sore throat, no congestion Resp: denies cough, SOB Card: denies murmurs, rubs, gallups GI: see hpi Heme: no easy bruising/bleeding, no blood thinners Skin: no rash, no erythema Vitals: BP 134/78 P69 R24 T98.0 100 on RA PHYSICAL EXAMINATION: General: NAD, alert and oriented x3 HEENT: PERRLA, EOMI, normal sclera, oropharynx without erythema or exudate Neck: Supple. Full ROM. Heart/Cardiovascular System: RRR, Cap refill < 3 seconds, no rub, no murmur Lungs/Respiratory System: CTA-B, no resp distress Abdomen/Gastro-Intestinal System: gravid, soft, non-tender, CVA tenderness on the R Extremities: Warm extremities. No cyanosis or edema Neuro: No gross deficits appreciated. CN 2-12 grossly intact Psychiatry: Awake, Alert and cooperative with exam Skin: No lesions, rashes, or ulcers Musculoskeletal: Full ROM A/P: # Pyelonephritis complicated by Staghorn Calculi - Treated successfully with rocephin May/Jun 2018, cont rocephin - WBC 12.5, afebrile, pulse 69, Blood, urine cultures pending - Morphine, Zofran, Tylenol - Urology consulted, hx of multiple procedures, appreciate recs - last positive urine culture May 2018: nagel-sensitive e. coli, strep pasteurianus # Hx of gestational HTN - Denies chronic HTN - Initial pressures in 150s systolic then resolved - Monitor BPs Fluids: LR 150ml/hr Code: full PPx: scd Diet: NPO pending Urology eval
[2019-07-14 00:53] LABS: Lactic Acid 0.8 mmol/L (0.5-2.2)
[2019-07-14] MEDS: Lactated Ringer's 1,000 ML IV SCH ×5 (01:04→21:27)
[2019-07-14] MEDS: Ondansetron PF 4 MG/2 ML Vial IVP PRN ×3 (03:40→17:39)
[2019-07-14 06:04] LABS: #Eosinphils 0.1 thou/uL (0.0-0.7); #Monocytes 0.7 thou/uL (0.11-0.59); #Neutrophils 6.7 thou/uL (1.40-6.50); %Basophils 0.1 % (0.0-1.0); %Eosinophils 0.7 % (0.0-10.0); %Lymphocytes 21.4 % (21.0-51.0); %Monocytes 7.2 % (0.0-10.0); %Neutrophils 70.6 % (42.0-75.0); Mean Corpuscular HGB CONC 34.5 g/dL (32.0-36.0); Mean Corpuscular Hemoglobin 30.3 pg (27.0-31.0); Mean Corpuscular Volume 87.8 fL (78.0-98.0); Mean Platelet Volume 6.7 fL (7.4-10.4); Platelet Count 224 thou/uL (130-400); RBC Distribution Width 13.5 % (11.5-14.5); Red Blood Cell (RBC) Count 3.63 mill/uL (4.20-5.40); White Blood Cell (WBC) Count 9.5 thou/uL (4.8-10.8)
[2019-07-14 06:23] LABS: Anion Gap 11 mmol/L (10-20); BUN (Urea Nitrogen) 7 mg/dL (7.0-18.7); Calc. Creatinine Clearance 169 mL/min (70-130); Calcium 8.5 mg/dL (7.8-10.44); Carbon Dioxide 21 mmol/L (22-29); Chloride 110 mmol/L (98-107); Estimated GFR-MDRD Greater than 90; Glucose 98 mg/dL (70-105); Potassium 3.6 mmol/L (3.5-5.1); Sodium 138 mmol/L (136-145)
--- NOTE | 2019-07-14 07:33 | PRG ---
DATE OF SERVICE: 07/14/2019 TIME OF CARYN: 0650 hours. SUBJECTIVE: The patient is 16 weeks with a known right staghorn calculi, who presented with flank pain and early pyelonephritis. She is admitted and states that her pain is better. Blood cultures and urine cultures are pending. She is on Rocephin. Dr. Lugo is consulted. OBJECTIVE: VITAL SIGNS: Temperature is 98.4, pulse 77, respirations 18, and blood pressure 126/61. PLAN: We will continue routine OB care. Continue antibiotics and await Dr. Lugo's treatment decisions. Job ID: [id number]
--- NOTE | 2019-07-14 08:37 | PDOC.LDHP ---
Labor and Delivery H&P HPI: HPI: This is a 34 yo at 15 3/7 weeks gestation, EDC of 01/02/20, Grand Multiparity, Previous C/S x1 for twins. successful x3, with a long history of severe renal lithiasis. She comes in for back pain today. She states she started having dysuria 2 days ago and tried to flush out her kidneys with fluids. She is having sharp/throbbing back pain which started 3-4 hours ago and is radiating to her abdomen. She states this is exactly like past episodes of nephrolithiasis she has had. She denies fevers, chills, or sweats. She did have one episode of vomiting. She is tolerating PO. Her most recent positive urine culture is from May 2018, it showed nagel- sensitive e.coli and strep pasteurianus. She was treated successfully with rocephin at that time. Past urology with Dr. Lugo included placement of a percutaneous nephrostomy tube for part of her . OB Hx: successful x3, Hx of twin gestation with , Hx gestational HTN, Hx Oligohydramnios PMH: Nephrolithiasis PSH: ureteral stent, lithotripsy, percutaneous nephrostomy tube Meds: Flomax, macrobid Allergies: [place] Soc Hx: denies smoking, alc, drugs Fm hx: hx of nephrolithiasis REVIEW OF SYSTEMS: Gen: no fever, chills, or sweats Neuro: denies headache Eyes: no visual changes ENT: no hearing changes, no sore throat, no congestion Resp: denies cough, SOB Card: denies murmurs, rubs, gallups GI: see hpi Heme: no easy bruising/bleeding, no blood thinners Skin: no rash, no erythema PHYSICAL EXAMINATION: General: NAD, alert and oriented x3 HEENT: PERRLA, EOMI, normal sclera, oropharynx without erythema or exudate Neck: Supple. Full ROM. Heart/Cardiovascular System: RRR, Cap refill < 3 seconds, no rub, no murmur Lungs/Respiratory System: CTA-B, no resp distress Abdomen/Gastro-Intestinal System: gravid, soft, non-tender, CVA tenderness on the R Extremities: Warm extremities. No cyanosis or edema Neuro: No gross deficits appreciated. CN 2-12 grossly intact Psychiatry: Awake, Alert and cooperative with exam Skin: No lesions, rashes, or ulcers Musculoskeletal: Full ROM A/P: 1. IUP at 15 and 3/7 weeks, EDC of 01/02/20. Repeat TOLAC/ planned 2. Pyelonephritis complicated by Staghorn Calculi - Treated successfully with rocephin Jun 2018, Re-start Rocephin this admission - WBC 12.5, afebrile, pulse 69, Blood, urine cultures pending - Morphine, Zofran, Tylenol - 3. Urology consulted - patient known to Dr. Lugo in previous 4. Last positive urine culture May 2018: nagel-sensitive e. coli, strep pasteurianus 5. Hx of previous HTN in - Denies chronic HTN - Initial pressures in 150s systolic then resolved - Monitor BPs 6. Plan home UTI suppression with daily po antibiotic - either Macrobid 100mg, or as advised by urology. 7. Vitamin po QD added Allergies/Adverse Reactions: Allergies Allergy/AdvReac Type Severity Reaction Status Date / Time hydrocodone Allergy severe Verified 06/21/18 10:25 itching
[2019-07-14] MEDS ORDERED: diphenhydrAMINE 50 MG/ML VIAL IVP SCH (11:00)
[2019-07-14] MEDS: Famotidine 20 MG TAB PO SCH ×2 (15:21→21:58)
[2019-07-14] MEDS: Aspirin 81 mg Enteric Coated Tablet PO SCH (15:21)
[2019-07-14] MEDS: Prenatal Vitamin 1 TAB PO SCH (15:21)
--- NOTE | 2019-07-14 16:30 | CON ---
DATE OF CONSULTATION: 07/14/2019 REASON FOR CONSULTATION: Hydronephrosis, kidney stones. CHIEF COMPLAINT: Flank pain. HISTORY OF PRESENT ILLNESS: This is a 34-year-old female, well known to me. I had previously been managing her kidney stones during her last . However, [facility] then ended its obstetrics program, and so her care was transferred to Dr. Ling here. After delivering her last child, she underwent a PCNL with large residual stone burden. She has now once again become and is currently 16 weeks with known large stone burden on the right side. She typically has intermittent right-sided flank pain from her stones. However, this acutely worsened with dysuria over the past couple of days. Overnight, she developed significant pain with vomiting. She denies fevers. She presented to the emergency room, where ultrasound showed right hydronephrosis, and urinalysis suggests infection. She has been admitted for IV antibiotics, pain control. This morning, she tells me that her pain is much improved, rating at 3 to 5/10 typically. She is no longer nauseated. She has not had any fevers overnight. PAST MEDICAL HISTORY: Kidney stones as above. SURGICAL HISTORY: Ureteral stent placement, nephrostomy tube, PCNL, . CURRENT MEDICATIONS: 1. Flomax. 2. Macrobid. ALLERGIES: NORCO. SOCIAL HISTORY: Nonsmoker. No substance abuse. FAMILY HISTORY: Positive for kidney stones. REVIEW OF SYSTEMS: Ten-point review of systems is negative except as mentioned above. PHYSICAL EXAMINATION: VITAL SIGNS: Afebrile, vitals stable. GENERAL: No acute distress, conversant. HEENT: Head; normocephalic, atraumatic. NECK: Supple. Trachea midline. RESPIRATORY: Breathing unlabored. Symmetric chest expansion. HEART: Regular rate and rhythm. ABDOMEN: Soft, nontender, nondistended, uterus palpable above the pubic symphysis. The patient does have right-sided flank tenderness. No left tenderness. No suprapubic tenderness. SKIN: Warm and dry. EXTREMITIES: Without clubbing, cyanosis, or edema. Alert and oriented x3. PSYCHIATRIC: Normal mood and affect. LABORATORY DATA: White count is 9.5, down from 12.5 yesterday; hemoglobin 11. Creatinine 0.56, down from 0.75 yesterday. Urinalysis, positive for leukocyte esterase. IMAGING: Bedside renal ultrasound was performed with severe hydronephrosis demonstrated. ASSESSMENT AND PLAN: Staghorn calculus, right kidney with hydronephrosis. Agree with broad-spectrum antibiotics while we await the culture results. If the patient requires urgent therapy at this point in her , nephrostomy tube may be the better option. She and I have discussed this, and she is very hesitant to undergo either a nephrostomy tube or stent placement given her history with these. She would like to avoid these if possible, and so if we control her pain and her infection, we will repeat an ultrasound and decide if intervention is necessary or she can be carefully monitored. I did explain to her that I think at some point she will require a stent or nephrostomy tube, but if we can delay this until further under , this will reduce the amount of time she will have to have these. Her previous history of nephrostomy tube is that the tube became obstructed and she had significant problems with this. After her percutaneous nephrolithotomy with a stent, she had to return to the hospital with stent complications. I again explained to the patient and her that after this delivery, she needs to have a plan for control until we can completely rid her of her kidney stones. Our 1st step will be a Lasix renal scan to document function of that kidney. If this kidney is functional, she then will undergo staged percutaneous nephrolithotomy, likely requiring three separate procedures including one ureteroscopy. I will continue to follow while the patient is in the hospital. I expect that she will be here at least until tomorrow. All of her questions were answered. Job ID: [id number]
[2019-07-14] MEDS ORDERED: FLU VACC QS2019-20(6MOS UP)/PF 60 MCG/0.5 ML SYRINGE IM ONE (21:00)
[2019-07-14] MEDS ORDERED: Zolpidem Tartrate 5 MG TAB PO PRN (21:20)
[2019-07-14] MEDS ORDERED: Tamsulosin HCl 0.4 MG CAP PO SCH (21:45)
[2019-07-14] MEDS ORDERED: cefTRIAXone\\ROCEPHIN 1 GM in Sodium Chloride 0.9% 100 ML IVPB SCH (23:59)
[2019-07-15] MEDS: Lactated Ringer's 1,000 ML IV SCH ×2 (04:54→17:38)
[2019-07-15] MEDS ORDERED: Tamsulosin HCl 0.4 MG CAP PO SCH (09:00)
[2019-07-15] MEDS: Famotidine 20 MG TAB PO SCH ×2 (09:33→21:18)
[2019-07-15] MEDS: Prenatal Vitamin 1 TAB PO SCH (09:34)
[2019-07-15] MEDS: Aspirin 81 mg Enteric Coated Tablet PO SCH (09:34)
--- NOTE | 2019-07-15 09:50 | PRG ---
DATE OF SERVICE: 07/15/2019 CHIEF COMPLAINT: Flank pain. SUBJECTIVE: A 34-year-old female, 16 weeks' with large right renal stone burden. She tells me that she has noted improvement in her discomfort overnight. She did pass a small stone. Her pain is now only 3 to 4/10. She denies fevers, nausea, dysuria, or hematuria. OBJECTIVE: VITAL SIGNS: Afebrile. Vitals stable overnight. Good urine output, voiding normally, noting clear urine. GENERAL: No acute distress, resting comfortably in bed. CHEST: Unlabored breathing. Symmetric chest expansion. HEART: Regular rate and rhythm. ABDOMEN: Soft, nontender, and nondistended. CVA tenderness much improved. No suprapubic tenderness. No peripheral edema. SKIN: Warm and dry. LABORATORY DATA: No lab work this morning. ASSESSMENT AND PLAN: A 34-year-old female, 16 weeks' with large right renal stones. The patient and I again discussed her situation and her goal is to avoid nephrostomy tube or stent placement if at all possible. Right now, I see no hard indications to insist on moving forward with either of these. We did discuss precautions for when this might become necessary and I advised her that I think she will end up with one of these during her . However, if we can defer those that will reduce the time that she has to deal with them. She is very savvy as far as kidney stones are concerned and I feel comfortable that she can contact me or present to the emergency room appropriately if she ends up in a situation where stent or nephrostomy tube might be necessary. We do need to have a clear plan for treating possible urinary tract infection and urine culture is not yet back. Once this has returned, she can discharge with 2 weeks of treatment. She can also discharge with Flomax. She will follow up in my office in 4 weeks unless she needs me sooner. Job ID: [id number]
[2019-07-15 13:55] VITALS: BMI 29.1
[2019-07-15 16:57] VITALS: TEMP 98.5
[2019-07-15 20:32] VITALS: BP 119/56
--- NOTE | 2019-07-15 21:17 | PDOC.EVN ---
Event Note - Event Note Event Note: HPI: This is a 34 yo at 15 3/7 weeks gestation, EDC of 01/02/20, Grand Multiparity, Previous C/S x1 for twins. successful x3, with a long history of severe renal lithiasis. Patient is also dealing with an itchy/painful facial rash that is chronic, and was present in previous . REVIEW OF SYSTEMS: Gen: no fever, chills, or sweats Neuro: denies headache Eyes: no visual changes ENT: no hearing changes, no sore throat, no congestion Resp: denies cough, SOB Card: denies murmurs, rubs, gallups GI: see hpi Heme: no easy bruising/bleeding, no blood thinners Skin: no rash, no erythema PHYSICAL EXAMINATION: General: NAD, alert and oriented x3 HEENT: PERRLA, EOMI, normal sclera, oropharynx without erythema or exudate Neck: Supple. Full ROM. Heart/Cardiovascular System: RRR, Cap refill < 3 seconds, no rub, no murmur Lungs/Respiratory System: CTA-B, no resp distress Abdomen/Gastro-Intestinal System: gravid, soft, non-tender, improved CVA tenderness on the R Extremities: Warm extremities. No cyanosis or edema Neuro: No gross deficits appreciated. CN 2-12 grossly intact Psychiatry: Awake, Alert and cooperative with exam Skin: No lesions, rashes, or ulcers Musculoskeletal: Full ROM A/P: 1. IUP at 15 and 4/7 weeks, EDC of 01/02/20. Repeat TOLAC/ planned 2. Improving Pyelonephritis complicated by Staghorn Calculi. Urology consulted - patient known to Dr. Lugo in previous 3. Hx of previous HTN in - Denies chronic HTN - Initial pressures in 150s systolic then resolved - Monitor BPs 4. Patient is dealing with an itchy/painful facial rash that is chronic, and was present in previous . DEE Panel ordered prior to discharge home. Triamcinolone Cream 0.1% ordered to be used out patient. 5. DC to home with Keflex/Flomax per urology.
[2019-07-17 17:01] LABS: ANA Symphony (Qualitative) Negative (Negative); ANA Symphony (Quantitative) 0.2 Ratio (< 0.7 Negative); dsDNA IgG Antibody 1.4 IU/mL (<10 Negative)
== END 2019-07-15 21:44 | disposition home or self-care (01) | DRG 832 ==
LOC: ERS 21:41 → 3SW 23:39 → 3SE 07-15 13:18
PROVIDERS: ADMIT Obstetrics & Gynecology; ATTEND Obstetrics & Gynecology
DX: O23.02 Infections of kidney in pregnancy, second trimester (principal); N13.6 Pyonephrosis; Z3A.16 16 weeks gestation of pregnancy
CPT/HCPCS: 36415; 80048; 80053; 81003; 81015; 83605; 85025; 86038; 86225; 87040; 87086; 96361; 96365; 96375; J0696; J1200; J2270; J2405; J3490

== ENCOUNTER 2019-08-21 21:23 | Emergency (ER) | payer OTHER ==
[2019-08-21 21:51] LABS: Bacteria/HPF None Seen HPF (None Seen); Bilirubin Negative (Negative); Blood, Urine 3+ (Negative); Clarity Turbid (Clear); Glucose, Urine (Dipstick) Normal (Negative); Leukocyte 25 Leu/uL (Negative); Nitrite Negative (Negative); Protein, Urine (Dipstick) 70 mg/dL (Neg-Trace); RBC/HPF Greater than 50 HPF (0-3); Urobilinogen Normal mg/dL (Less than 2); WBC/HPF 21-50 HPF (0-3)
[2019-08-21] MEDS ORDERED: Morphine 4 MG/ML VIAL ONE ×2 (21:58→23:15)
[2019-08-21] MEDS ORDERED: Ondansetron PF 4 MG/2 ML Vial ONE (21:58)
[2019-08-21 22:04] LABS: #Lymphocytes 1.2 thou/uL (1.20-3.40); #Monocytes 0.8 thou/uL (0.11-0.59); #Neutrophils 10.1 thou/uL (1.40-6.50); %Basophils 0.2 % (0.0-1.0); %Eosinophils 0.2 % (0.0-10.0); %Monocytes 6.4 % (0.0-10.0); %Neutrophils 83.3 % (42.0-75.0); Hemoglobin 13.1 g/dL (12.0-16.0); Mean Corpuscular HGB CONC 34.7 g/dL (32.0-36.0); Mean Corpuscular Hemoglobin 31.3 pg (27.0-31.0); Mean Platelet Volume 7.1 fL (7.4-10.4); Platelet Count 182 thou/uL (130-400); RBC Distribution Width 13.2 % (11.5-14.5); Red Blood Cell (RBC) Count 4.18 mill/uL (4.20-5.40); White Blood Cell (WBC) Count 12.1 thou/uL (4.8-10.8)
[2019-08-21 22:26] LABS: ALT (SGPT) 8 U/L (8-55); AST (SGOT) 13 U/L (5-34); Albumin 3.5 g/dL (3.5-5.0); Alkaline Phosphatase 93 U/L (40-110); Anion Gap 13 mmol/L (10-20); BUN (Urea Nitrogen) 12 mg/dL (7.0-18.7); Bilirubin, Total 0.4 mg/dL (0.2-1.2); Calc. Creatinine Clearance 0 mL/min (70-130); Carbon Dioxide 21 mmol/L (22-29); Chloride 105 mmol/L (98-107); Estimated GFR-MDRD 82; Globulin 3.4 g/dL (2.4-3.5); Glucose 107 mg/dL (70-105); Lipase 17 U/L (8-78); Potassium 3.6 mmol/L (3.5-5.1); Protein, Total 6.9 g/dL (6.0-8.3); Sodium 135 mmol/L (136-145)
--- NOTE | 2019-08-21 22:39 | PDOC.EVN ---
Event Note - Event Note Event Note: ER phone conversation with Silvio in the ED: approx 0 HX reviewed With Chance and in EMR Last seen here in july HX Staghorn calculi with urology eval last month Now UA here with no bacteria seen, afebrile. WBC 12 Consider outpatient urine suppression with macrobid
--- NOTE | 2019-08-21 22:56 | ULT ---
Obstetric sonogram abdominal sonogram limited HISTORY: Second trimester gestation. Abdomen pain. FINDINGS: Single intrauterine gestation in breech presentation. Heart motion at 140 bpm. Three-vessel cord shows a normal insertion. spine and kidneys are intact as visualized. No gross intracranial abnormalities are apparent. Grade 1 placenta is posterior. Uterine contraction is appare nt along the anterior wall. Amniotic fluid is within normal limits. Cervix is closed and 4.5 cm. Measurements are as follows: Biparietal diameter 20 weeks 3 days Head circumference 21 weeks 1 day Abdominal circumference 22 weeks 6 days Femur length 21 weeks 0 days [place] 59 percentile. Estimated date of delivery based on today's sonogram 12/29/2019. Maternal right kidney is 14.4 cm length. Large calcification again demonstrated at the inferior pole. Distention of the right renal collecting system is greater than on the CT exam from 07/02/2018. IMPRESSION : Single intrauterine gestation in breech presentation. Estimated gestational age based on today's sono gram 21 weeks 3 days. No evidence of complication. Large right renal inferior pole calculus is similar in appearance to prior CT. Hydronephrosis has inc reased since that exam.
[2019-08-21 23:10] LABS: Bacteria/HPF None Seen HPF (None Seen); Bilirubin Negative (Negative); Blood, Urine 3+ (Negative); Clarity Turbid (Clear); Glucose, Urine (Dipstick) Normal (Negative); Leukocyte 75 Leu/uL (Negative); Nitrite Negative (Negative); Protein, Urine (Dipstick) 50 mg/dL (Neg-Trace); RBC/HPF Greater than 50 HPF (0-3); Squamous Epithelial 0-3 HPF (0-3); Urobilinogen Normal mg/dL (Less than 2)
== END 2019-08-22 00:05 | disposition home or self-care (01) ==
LOC: ERS 21:23
DX: O26.832 Pregnancy related renal disease, second trimester (principal); N13.2 Hydronephrosis with renal and ureteral calculous obstruction; Z3A.21 21 weeks gestation of pregnancy
CPT/HCPCS: 51701; 76856; 80053; 81003; 81015; 83690; 85025; 87086; 93976; 96361; 96374; 96375; J2270; J2405

== ENCOUNTER 2020-01-14 15:31 | Outpatient (CLI) | payer OTHER ==
--- NOTE | 2020-01-14 16:46 | CT ---
CT ABDOMEN AND PELVIS WITHOUT CONTRAST USING STONE PROTOCOL: 01/14/20 HISTORY: Kidney stone. Staghorn calculus. COMPARISON: 07/02/18. FINDINGS: Absence of oral and IV contrast reduces the sensitivity of the exam particularly for evaluation of so lid organs and bowel. The lung bases are unremarkable. No free air or free fluid is seen in the abdom en or pelvis. No calcified gallstones are seen. The uterus is present. There are multiple tiny nonobstructing left renal calculi. No left sided hydroureteronephrosis is not ed. No calculi is seen in the urinary bladder. There has been interval removal of the right sided ureteral stent. Multiple calculi in the right kidn ey are again seen where there is significant/large residual stone burden. There is right sided hydron ephrosis. There is a 13 mm calculus in the right ureter at the pelvic inlet. There are multiple calcu li in the right distal ureter including a 4 mm calculus of the right UVJ. The other distal ureteric calculi. The largest of the other distal right ureteric calculus measure about 9 mm. IMPRESSION: 1. Significant stone burden in the right kidney since 07/02/18 with right ureteric calculi at the pelvic inlet, distal ureter, and the UVJ with accompanying right sided hydronephrosis. 2. Nonobstructing multiple tiny left renal calculi. POS: OFF
== END 2020-01-14 15:32 | disposition home or self-care (01) ==
LOC: BICCT 15:31
PROVIDERS: ATTEND Urology
DX: N13.2 Hydronephrosis with renal and ureteral calculous obstruction (principal)
CPT/HCPCS: 74176

== ENCOUNTER 2020-01-24 12:31 | Outpatient (CLI) | payer OTHER ==
--- NOTE | 2020-01-24 18:22 | NM ---
NM Renogram HIPN Lasix History: Staghorn calculus of right kidney Comparison: CT abdomen and pelvis without contrast January 14, 2020 Findings: The dermis and renal flow and perfusion exam was performed after the intravenous administra tion 8.3 mCi dictation 9 NM MAG3. The split function is 79.3% on the left and 20.7% on the right. There is chronic obstruction of the r ight kidney with continued uptake of radiotracer throughout the exam. Normal function of the left kidney. Normal radiotracer uptake and excretion within the left kidney with delayed uptake and excretion in t he right kidney. Impression: 1. Split function of 79.3% on the left and 20.7% on the right. 2. Chronic obstruction of the right renal collecting system with delayed uptake and excretion of radi otracer throughout the entire exam.
== END 2020-01-24 12:32 | disposition home or self-care (01) ==
LOC: NM 12:31
PROVIDERS: ATTEND Urology
DX: N20.0 Calculus of kidney (principal); N28.89 Other specified disorders of kidney and ureter
CPT/HCPCS: 78708; A4641; A9562

== ENCOUNTER 2020-02-07 06:56 | Day surgery (SDC) | payer OTHER ==
[2020-02-05 09:26] VITALS: BMI 28.8
[2020-02-07] MEDS ORDERED: Levofloxacin 500 mg/D5W 100 ml Premix Bag ONE (07:23)
[2020-02-07] MEDS ORDERED: Iothalamate Meglumine 60% 50 ML VIAL FS ONE (08:10)
[2020-02-07] MEDS ORDERED: Fentanyl 100 MCG/2 ML VIAL ONE (08:13)
[2020-02-07] MEDS ORDERED: Ondansetron PF 4 MG/2 ML Vial ONE ×2 (09:07→11:14)
[2020-02-07] MEDS ORDERED: PROPOFOL 200 MG/20 ML VIAL ONE (09:07)
[2020-02-07] MEDS ORDERED: Ketorolac Tromethamine 30 MG/ML VIAL ONE (09:52)
[2020-02-07] MEDS ORDERED: Oxybutynin 5 MG TAB ONE (09:53)
[2020-02-07] MEDS ORDERED: Promethazine HCl 25 MG/ML VIAL ONE (10:14)
--- NOTE | 2020-02-07 10:16 | OP ---
DATE OF PROCEDURE: 02/07/2020 PREOPERATIVE DIAGNOSIS: Right ureteral stones. POSTOPERATIVE DIAGNOSIS: Right ureteral stones. PROCEDURES PERFORMED: Right ureteroscopy with laser lithotripsy, basket extraction of stone, retrograde pyelogram, intraoperative interpretation of radiologic imaging, 6 x 26 double-J ureteral stent placement without strings. ANESTHESIA: General. COMPLICATIONS: None. ESTIMATED BLOOD LOSS: Minimal. SPECIMEN: None. DESCRIPTION OF PROCEDURE: After informed consent, the patient was taken to the operating room, transferred to the table under her own power. Anesthesia was established. A time-out was performed, showing the correct patient, site, and procedure. Preoperative antibiotics were administered. She was prepped and draped in the lithotomy position. The semi-rigid ureteroscope was advanced through the urethra into the bladder. The right ureteral orifice was identified and cannulated with a wire. Fluoroscopy was required to negotiate the wire passed three large distal obstructing stones, however, I was able to eventually pass the stones and get the wire into the proximal ureter. The scope was withdrawn and reinserted alongside the wire. The three large stones in the distal ureter were dusted with the 365 micron laser fiber. The scope was then passed up into the proximal ureter, where a 4th stone was identified and also dusted into tiny pieces. The scope was then passed up into the renal pelvis, noting no further obstructing stones or abnormalities. A retrograde pyelogram was performed showing hydronephrosis and hydroureter with no filling defects remaining in the ureter. The scope was then carefully withdrawn and basket used to remove a few clinically significant stone fragments, which were not passed off as specimen as she will have specimen from her PCNL procedure. The scope was then withdrawn and a 6 x 26 double-J ureteral stent without strings passed over the wire with a curl in the kidney and curl in the bladder. She was then awoken from anesthesia, transferred back to her hospital bed, and taken to PACU in stable condition, where she was discharged home upon recovery to return on the for PCNL. Job ID: [id number]
== END 2020-02-07 11:48 | disposition home or self-care (01) ==
LOC: SDC 06:56
PROVIDERS: ATTEND Urology
PROC: 0T768DZ Dilation of Right Ureter with Intraluminal Device, Via Natural or Artificial Opening Endoscopic (ICD-10-PCS; principal; 2020-02-07)
PROC: 0TC68ZZ Extirpation of Matter from Right Ureter, Via Natural or Artificial Opening Endoscopic (ICD-10-PCS; principal; 2020-02-07)
DX: N13.2 Hydronephrosis with renal and ureteral calculous obstruction (principal); Z79.82 Long term (current) use of aspirin; Z79.899 Other long term (current) drug therapy; Z88.5 Allergy status to narcotic agent
CPT/HCPCS: 76000; J1885; J1956; J2405; J2550; J2704; J3010

== ENCOUNTER 2020-02-13 07:33 | Outpatient (CLI) | payer OTHER ==
[2020-02-13 14:40] LABS: INR-International Normal Ratio 0.9; PTT 33.7 sec (22.9-36.1)
[2020-02-13 15:01] LABS: BHCG - Serum Negative (NEGATIVE); Pregs Control Background? CLEAR/WHITE (CLR/WHITE); Pregs Control Bar Appear? YES (CONTROL BAR)
[2020-02-13 15:03] LABS: Hemoglobin 11.8 g/dL (12.0-16.0); Mean Corpuscular HGB CONC 33.6 g/dL (32.0-36.0); Mean Corpuscular Hemoglobin 29.7 pg (27.0-31.0); Mean Corpuscular Volume 88.3 fL (78.0-98.0); Mean Platelet Volume 6.9 fL (7.4-10.4); Platelet Count 377 thou/uL (130-400); RBC Distribution Width 12.2 % (11.5-14.5); Red Blood Cell (RBC) Count 3.97 mill/uL (4.20-5.40); White Blood Cell (WBC) Count 7.6 thou/uL (4.8-10.8)
[2020-02-13 15:19] LABS: Bilirubin Negative (Negative); Blood, Urine 2+ (Negative); Clarity Turbid (Clear); Glucose, Urine (Dipstick) Normal (Negative); Ketone, Urine Negative (Negative); Leukocyte 500 Leu/uL (Negative); Nitrite Negative (Negative); Protein, Urine (Dipstick) 300 mg/dL (Neg-Trace); RBC/HPF Greater than 50 HPF (0-3); Specific Gravity, Urine 1.019 (1.002-1.036); Squamous Epithelial 0-3 HPF (0-3); Urobilinogen Normal mg/dL (Less than 2); WBC/HPF Greater than 50 HPF (0-3); pH, Urine 6.5 (5.0-9.0)
[2020-02-13 15:22] LABS: Bacteria/HPF 1+ HPF (None Seen)
[2020-02-13 15:23] LABS: Anion Gap 12 mmol/L (10-20); BUN (Urea Nitrogen) 13 mg/dL (7.0-18.7); Calc. Creatinine Clearance 0 mL/min (70-130); Calcium 8.9 mg/dL (7.8-10.44); Carbon Dioxide 28 mmol/L (22-29); Chloride 104 mmol/L (98-107); Estimated GFR-MDRD 69; Glucose 89 mg/dL (70-105); Potassium 3.9 mmol/L (3.5-5.1); Sodium 140 mmol/L (136-145)
[2020-02-14 12:27] LABS: SARS-CoV-2 MS2 Positive; SARS-CoV-2 N Gene Negative; SARS-CoV-2 S Gene Negative; SARS-CoV-2 by NAA Not Detected (NotDetected); SARS-CoV-2 orf1ab Negative
== END 2020-02-13 07:34 | disposition home or self-care (01) ==
LOC: LABBT 07:33
PROVIDERS: ATTEND Urology
DX: Z01.812 Encounter for preprocedural laboratory examination (principal); Z20.828 Contact with and (suspected) exposure to other viral communicable diseases; N20.0 Calculus of kidney
CPT/HCPCS: 80048; 81001; 84703; 85027; 85610; 85730; 86850; 86900; 86901; 87086; 87635; U0003

== ENCOUNTER 2020-02-18 06:58 | Observation (INO) | payer OTHER ==
[2020-02-18] MEDS ORDERED: Levofloxacin 500 mg/D5W 100 ml Premix Bag ONE (08:25)
[2020-02-18] MEDS ORDERED: Lidocaine 1% (PF) 30 ML VIAL ONE (08:40)
[2020-02-18] MEDS ORDERED: Bupivacaine 0.25% HCL 30 ML VIAL ONE (08:40)
[2020-02-18] MEDS ORDERED: Iothalamate Meglumine 60% 50 ML VIAL FS ONE ×2 (08:40→10:05)
[2020-02-18] MEDS ORDERED: Sterile Water 0 ML ONE (08:40)
[2020-02-18] MEDS ORDERED: Fentanyl 100 MCG/2 ML VIAL ONE (08:47)
[2020-02-18] MEDS ORDERED: SUGAMMADEX SODIUM 200 MG/2 ML VIAL ONE (08:47)
[2020-02-18] MEDS ORDERED: Scopolamine 1.5 mg/72 hour Patch ONE (08:51)
[2020-02-18] MEDS ORDERED: Rocuronium Bromide 10 MG/ML (10ML VIAL) ONE (09:41)
[2020-02-18] MEDS ORDERED: PROPOFOL 200 MG/20 ML VIAL ONE (09:41)
[2020-02-18] MEDS ORDERED: Lidocaine 1% PF 5 ML VIAL ONE (09:41)
[2020-02-18] MEDS ORDERED: Ondansetron PF 4 MG/2 ML Vial IVP PRN (12:12)
[2020-02-18] MEDS ORDERED: Zolpidem Tartrate 5 MG TAB PO PRN (12:12)
[2020-02-18] MEDS ORDERED: hydrALAZINE 20 MG/ML VIAL SLOW IVP PRN (12:12)
[2020-02-18] MEDS ORDERED: Hyoscyamine Sulfate SL 0.125 mg Tablet SL PRN (12:12)
[2020-02-18] MEDS ORDERED: diphenhydrAMINE 50 MG/ML VIAL IVP PRN (12:12)
[2020-02-18] MEDS ORDERED: Ondansetron PF 4 MG/2 ML Vial ONE (12:17)
[2020-02-18] MEDS ORDERED: Promethazine HCl 25 MG/ML VIAL ONE (12:32)
[2020-02-18] MEDS ORDERED: Metoclopramide HCl 10 MG/2 ML VIAL ONE (12:39)
[2020-02-18] MEDS: Morphine 4 MG/ML VIAL SLOW IVP PRN ×2 (13:53→15:58)
[2020-02-18 14:08] VITALS: BMI 28.8
[2020-02-18] MEDS: Ketorolac Tromethamine 30 MG/ML VIAL IVP SCH ×2 (15:55→20:28)
[2020-02-18] MEDS: D5 1/2 NS w/20 mEq KCL 1,000 ML IV SCH ×2 (15:55→20:28)
--- NOTE | 2020-02-18 16:38 | OP ---
DATE OF PROCEDURE: 02/18/2020 PREOPERATIVE DIAGNOSIS: Right renal stones. POSTOP DIAGNOSIS: Right renal stones. PROCEDURES PERFORMED: Cystoscopy with right ureteral catheterization, retrograde pyelogram, right percutaneous nephrolithotomy including dilation of nephrostomy tract with LithoClast and laser of renal stones, nephrostomy tube placement, antegrade nephrostogram. ANESTHESIA: General. COMPLICATIONS: None. BLOOD LOSS: 50 to 100 mL. SPECIMEN: Stone fragments. DESCRIPTION OF PROCEDURE: After informed consent, the patient was brought to the operating room. Anesthesia was established on her stretcher. A time-out was performed showing the correct patient, site, and procedure. Preoperative antibiotics were administered. She was prepped and draped in the frog-leg position on her stretcher. I inserted the flexible cystoscope and attempted to grab the indwelling stent. However, the grasper was not functioning and so I passed a wire alongside the stent and then placed a Pollack catheter over this. The Pollack catheter was taped to her thigh and then a 16-Northern Irish [place] catheter was placed with 10 mL instilled in the balloon draining yellow urine. She was then prepped and draped in the prone position on the operating table. Access through the lower pole was obtained by Dr. Jimenez, which will be dictated separately. He then turned the case over to me with a wire down the ureter. I used an 8-Northern Irish right tip catheter to pass a second wire down the ureter, which was then used to pass the balloon dilator into the calyx. The balloon was then inflated dilating the tract and then the access sheath passed over this with the tip of the sheath just touching the lower/mid pole stone. The nephroscope was then inserted through the access sheath and the LithoClast was used to treat the lower pole stones. There was a calyx below where we were able to access, that I was not able to identify either with the rigid scope or flexible scope later. Once all stone fragments were removed, fluoroscopy was then performed showing residual stone in the previously mentioned lowest pole calyx as well as an upper pole calyx. I switched to the flexible scope and was able to identify the stone in the upper pole. This was treated with a 365 micron laser fiber and fragmented into several pieces. Several of these pieces were removed with a basket. However, several remained in an accessible area of that calyx. Given that there were stone fragments in the upper pole that I could not access and I could not identify the lower pole stone, I decided to finish the procedure at this point with tentative plans to return Monday for 2nd look, at which point I should be able to easily identify the lower pole and ensure complete passage of all upper pole fragments. The nephroscope and access sheath were removed leaving one wire in place. A Pollack catheter was passed over this and then a Councill tip catheter on top of that. About 3 to 4 mL were filled into the balloon of the Councill tip catheter, which was well positioned with its balloon in the calyx and tip toward the renal pelvis. The Pollack catheter was traversing down the ureter. The incision was partially closed with vertical mattress Vicryl suture and then the Councill tip catheter sutured to her skin also with Vicryl. This was then dressed with 4x4s and Tegaderm. She was awoken from anesthesia, transferred back to her hospital bed, and taken to PACU in stable condition, where she will be admitted to my service with plans for CT scan in the morning for further planning, possibly second-look PCNL Monday. Job ID: [id number]
--- NOTE | 2020-02-18 16:45 | SPC ---
PROCEDURE: Antegrade right pyelogram with placement of catheter and guidewire into the left ureter PROVIDED CLINICAL HISTORY: Large stone burden with multiple right renal calculi present. COMPARISON: CT abdomen and pelvis on 01/14/2020 TECHNIQUE: After informed consent was obtained, the patient was placed on the operating room table in the prone position. General endotracheal anesthesia was performed by anesthesia. Skin and subcutaneous tissues overlying lower pole calculus were infiltrated with buffered 1% lidocaine for local anesthesi a. A 22-gauge Chiba needle was advanced to the level of the calculus. A retrograde catheter was placed prior to this procedure with tip position in the region of the right renal pelvis. Contrast in jection in a retrograde fashion was performed to distend the renal collecting system. The needle was exchanged over a 0.018 inch guidewire for a 6 Turkmen AccuStick sheath with stiff inner cannula and dilator. Guidewire and inner cannula were removed. Contrast injection confirms placement in the renal collecting system. A 0.035 inch Glidewire was placed and manipulated into the right ureter. However, the catheter was unable to be manipulated into the ureter due to focal narrowing at the UPJ. As a result, the AccuStick sheath was exchanged over a 0.035 inch Amplatz guide wire for a 5 Turkmen Berenstein catheter. The Berenstein catheter and a 0.035 inch Glidewire were then manipulated into the distal right ureter. Contrast injection confirms placement in the ureter. T he tip of the guidewire was placed at the level of the UVJ. Catheter was removed. The nephrostomy tract dilatation and remainder of the procedure was performed by shahbaz Lange see that report for further details. IMPRESSION: 1. Right renal calculi with large calculi in the inferior pole right renal collecting system. 2. Technically successful right nephroureteral catheter and guidewire placement. 3. Right ureteral stent in place with findings suggesting focal narrowing at the UPJ.
[2020-02-18] MEDS: Docusate 100 MG CAP PO SCH ×2 (20:28→22:33)
[2020-02-18] MEDS: traMADol HCl 50 MG TAB PO PRN (22:33)
[2020-02-19] MEDS: Ketorolac Tromethamine 30 MG/ML VIAL IVP SCH ×3 (03:08→15:09)
[2020-02-19] MEDS: traMADol HCl 50 MG TAB PO PRN ×2 (03:09→08:41)
[2020-02-19 05:49] LABS: #Eosinphils 0.2 thou/uL (0.0-0.7); #Monocytes 0.6 thou/uL (0.11-0.59); #Neutrophils 5.2 thou/uL (1.40-6.50); %Basophils 0.4 % (0.0-1.0); %Eosinophils 2.5 % (0.0-10.0); %Lymphocytes 25.3 % (21.0-51.0); %Monocytes 6.9 % (0.0-10.0); Hemoglobin 10.2 g/dL (12.0-16.0); Mean Corpuscular HGB CONC 32.9 g/dL (32.0-36.0); Mean Corpuscular Hemoglobin 28.8 pg (27.0-31.0); Mean Corpuscular Volume 87.5 fL (78.0-98.0); Mean Platelet Volume 6.5 fL (7.4-10.4); Platelet Count 336 thou/uL (130-400); RBC Distribution Width 12.2 % (11.5-14.5); Red Blood Cell (RBC) Count 3.53 mill/uL (4.20-5.40); White Blood Cell (WBC) Count 8.1 thou/uL (4.8-10.8)
[2020-02-19 06:11] LABS: Anion Gap 9 mmol/L (10-20); BUN (Urea Nitrogen) 11 mg/dL (7.0-18.7); Calc. Creatinine Clearance 100 mL/min (70-130); Calcium 7.7 mg/dL (7.8-10.44); Carbon Dioxide 26 mmol/L (22-29); Chloride 108 mmol/L (98-107); Estimated GFR-MDRD 67; Glucose 102 mg/dL (70-105); Potassium 3.7 mmol/L (3.5-5.1); Sodium 139 mmol/L (136-145)
[2020-02-19] MEDS: D5 1/2 NS w/20 mEq KCL 1,000 ML IV SCH ×2 (06:22→15:10)
[2020-02-19] MEDS: Docusate 100 MG CAP PO SCH (08:41)
[2020-02-19] MEDS ORDERED: FLU VACC QS2020-21(6MOS UP)/PF 60 MCG/0.5 ML SYRINGE IM ONE (09:00)
[2020-02-19] MEDS ORDERED: Tamsulosin HCl 0.4 MG CAP PO SCH (09:00)
--- NOTE | 2020-02-19 09:31 | CT ---
CT ABDOMEN AND PELVIS WITHOUT IV CONTRAST: INDICATION: Followup surgery. Recent stone removal and percutaneous nephrostomy placement with ureteral stent. COMPARISON: Comparison is made to preoperative CT abdomen and pelvis 01/14/2020. FINDINGS: There is now a small right pleural effusion which is new. Mild bibasilar atelectasis. Liver, spleen, pancreas, stomach, and duodenum unremarkable. Adrenal glands normal. Postoperative changes involving the right kidney. A percutaneous nephrostomy is in place. A right u reteral stent appears adequately positioned. The percutaneous catheter extends into the right ureter . Some residual small calcifications are seen in the mid pole collecting structures of the right kidney . There is a residual small calcification in the distal right ureter best appreciated on coronal image 78. This tiny calcification measures in the 3 mm range. A [place] catheter is in place and the urinary bladder is contracted. There are tiny calcifications an d/or gravel seen within this contracted urinary bladder to the left of midline. There are several small calcifications in upper pole collecting structures of the left kidney which a re unchanged in appearance from the recent CT. The left ureter is normal caliber. The calcification s in the bladder are near the left UVJ. The bowel loops are unremarkable. Images through the pelvis show a small amount of free fluid in the region of the cul-de-sac. The yomaira sony is prominent. IMPRESSION: Postoperative changes involving the right kidney as described above. Residual calcifications in the right upper collecting structures, distal right ureter, and within the bladder as described above. N onobstructing calculi in the upper collecting structures of the left kidney remain stable. POS: AH
[2020-02-19 16:29] VITALS: BP 116/77; TEMP 97.6
--- NOTE | 2020-02-20 00:18 | DIS ---
DATE OF ADMISSION: 02/18/2020 DATE OF DISCHARGE: 02/19/2020 DISCHARGE DIAGNOSIS: Right staghorn calculus. PROCEDURE PERFORMED: Right PCNL. HOSPITAL COURSE: The patient underwent a first-stage right percutaneous nephrolithotomy on February 17. The majority of her stone burden was removed, however, she does have residual stone in a lower pole calyx, which was not accessible with the access sheath in place yesterday. This was confirmed on CT scan on the morning of February 18. She does have second-look PCNL scheduled for February 20. By midday on the , she was having no appreciable discomfort and was urinating normally. She has been tolerating diet and is ready for discharge home with plans to return on Monday for outpatient second-look PCNL. DISCHARGE EXAM: GENERAL: No acute distress. LUNGS: Unlabored breathing. HEART: Regular rate and rhythm. ABDOMEN: Soft, nontender, nondistended. Right nephrostomy tube in good position with dressing in place. SKIN: Warm and dry. DISCHARGE MEDICATIONS: 1. Canalou. 2. Cipro. 3. Tamsulosin. All have been sent to [facility] on . DISCHARGE PLAN: Follow up on Monday for second-look PCNL as outpatient. Job ID: [id number]
[2020-02-20 12:49] LABS: SARS-CoV-2 MS2 Positive; SARS-CoV-2 N Gene Negative; SARS-CoV-2 S Gene Negative; SARS-CoV-2 by NAA Not Detected (NotDetected); SARS-CoV-2 orf1ab Negative
[2020-02-28 16:37] LABS: Color Tan (.); Stone Weight 325 mg (.)
== END 2020-02-19 17:30 | disposition home or self-care (01) ==
LOC: SDC 06:58 → SURG B 12:12
PROVIDERS: ADMIT Urology; ATTEND Urology
PROC: 0TC03ZZ Extirpation of Matter from Right Kidney, Percutaneous Approach (ICD-10-PCS; principal; 2020-02-18)
DX: N20.2 Calculus of kidney with calculus of ureter (principal); Z79.82 Long term (current) use of aspirin; Z79.899 Other long term (current) drug therapy; Z88.5 Allergy status to narcotic agent; Z20.828 Contact with and (suspected) exposure to other viral communicable diseases
CPT/HCPCS: 36415; 50437; 74176; 74485; 80048; 82365; 85025; 86850; 86900; 86901; 87635; 88300; 90471; 90662; 96361; 96365; 96375; 96376; G0008; G0378; J1885; J1956; J2001; J2270; J2405; J2550; J2704; J2765; J3010; J3480; S0020; U0003

== ENCOUNTER 2020-02-21 07:52 | Day surgery (SDC) | payer OTHER ==
[~2020-02-21 07:52] MED LIST changes: -ISOVUE-370 76%-LOCM 1 ML ONE; +Ketorolac Tromethamine 30 MG/ML VIAL IVP PRN; +Ondansetron HCl/PF 4 MG/2 ML Vial IVP PRN; +Promethazine HCl 25 MG/ML VIAL IM PRN; +Promethazine HCl 25 MG/ML VIAL SLOW IVP PRN
[2020-02-21] MEDS ORDERED: Levofloxacin 500 mg/D5W 100 ml Premix Bag ONE (08:17)
[2020-02-21] MEDS ORDERED: Scopolamine 1.5 mg/72 hour Patch ONE (08:32)
[2020-02-21] MEDS ORDERED: Sterile Water 0 ML ONE (10:33)
[2020-02-21] MEDS ORDERED: Lidocaine 1% (PF) 30 ML VIAL ONE (10:33)
[2020-02-21] MEDS ORDERED: Bupivacaine 0.25% HCL 30 ML VIAL ONE (10:33)
[2020-02-21] MEDS ORDERED: Iothalamate Meglumine 60% 50 ML VIAL FS ONE (10:33)
[2020-02-21] MEDS ORDERED: Fentanyl 100 MCG/2 ML VIAL ONE ×3 (10:38→12:50)
[2020-02-21] MEDS ORDERED: Midazolam HCl 2 mg/2 ml Vial ONE (10:38)
[2020-02-21] MEDS ORDERED: Glycopyrrolate 0.2 MG/ML 5 ML SYRINGE ONE (11:42)
[2020-02-21] MEDS ORDERED: Ondansetron PF 4 MG/2 ML Vial ONE (11:42)
[2020-02-21] MEDS ORDERED: PROPOFOL 200 MG/20 ML VIAL ONE (11:42)
[2020-02-21] MEDS ORDERED: Rocuronium Bromide 10 MG/ML (10ML VIAL) ONE (11:42)
[2020-02-21] MEDS ORDERED: Promethazine HCl 25 MG/ML VIAL ONE (13:02)
--- NOTE | 2020-02-21 13:29 | OP ---
DATE OF PROCEDURE: 02/21/2020 PREOPERATIVE DIAGNOSIS: Right renal stones. POSTOPERATIVE DIAGNOSIS: Right renal stones. PROCEDURES PERFORMED: Second-look right PCNL, nephrostogram with intraoperative interpretation. ANESTHESIA: General. COMPLICATIONS: None. ESTIMATED BLOOD LOSS: 10 mL. SPECIMEN: None sent. DESCRIPTION OF PROCEDURE: After informed consent, the patient was taken to the operating room. Anesthesia was established on her stretcher. She was then transferred over to the operating table, positioned in the prone position. Preoperative antibiotics were administered. She was prepped and draped. A time-out was performed showing the correct patient, site, and procedure. An Amplatz wire was passed down the previously placed Furlong catheter and then the Furlong and nephrostomy tube were removed. The flexible nephroscope was passed alongside this through the previously established tract and into the renal pelvis. There were several stones near the lower pole that had previously been covered by the access sheath, which I was able to remove with a basket and a larger stone in the lower pole that required lasering with a 273 micron laser fiber. I was unable to identify the remaining stone fragment in the upper pole, which was removed from the upper pole calyx. On fluoroscopy, she had no further stone fragments except for a large collection in the very lowest pole of the kidney. Contrast was instilled through the scope to perform a nephrostogram showing no communication with the lower pole. The scope was guided down to this location. However, I was unable to identify an infundibulum leading to this calyx. I do not believe that this is accessible from her collecting system currently. The kidney was then re-examined noting no residual stone fragments and then the scope and wire were withdrawn after ensuring that the previously placed stent was in good position. The nephrostomy site was covered with 4x4 and tape. She was then awoken from anesthesia, transferred back to her hospital bed, and taken to PACU in stable condition, where she will discharge home upon recovery. Job ID: [id number]
[2020-02-21] MEDS ORDERED: Acetaminophen/Codeine 30-300mg Tablet ONE (13:54)
--- NOTE | 2020-02-21 14:13 | RAD ---
XR Nephrostogr W/Litho Fluoro History: Kidney stones Comparison: CT examination 2 days prior Findings: Single fluoroscopic image was obtained with contrast filling the right renal collecting sys tem which is mildly distended. Size decreased right inferior renal collecting system stone. Impression: Fluoroscopy for procedure purposes. Total fluoroscopy time: 23.2 seconds
== END 2020-02-21 15:03 | disposition home or self-care (01) ==
LOC: SDC 07:52
PROVIDERS: ATTEND Urology
PROC: 0TC03ZZ Extirpation of Matter from Right Kidney, Percutaneous Approach (ICD-10-PCS; principal; 2020-02-21)
DX: N20.0 Calculus of kidney (principal); Z79.82 Long term (current) use of aspirin; Z79.899 Other long term (current) drug therapy; Z88.5 Allergy status to narcotic agent
CPT/HCPCS: 74420; 74425; J1956; J2001; J2250; J2405; J2550; J2704; J3010; S0020

== ENCOUNTER 2022-01-11 07:12 | Outpatient (CLI) | payer OTHER | END 2022-01-11 07:13 | disposition home or self-care (01) | LOC: BICULT 07:12 | PROVIDERS: ATTEND Student in an Organized Health Care Education/Training Program | DX: R10.11 Right upper quadrant pain (principal); N27.0 Small kidney, unilateral | CPT/HCPCS: 76705 ==

== ENCOUNTER 2022-05-25 16:43 | Observation (INO) | payer OTHER ==
[2022-05-25 17:19] LABS: #Eosinphils 0.1 thou/uL (0.0-0.7); #Lymphocytes 2.7 thou/uL (1.20-3.40); #Monocytes 0.7 thou/uL (0.11-0.59); #Neutrophils 6.2 thou/uL (1.40-6.50); %Basophils 0.1 % (0.0-1.0); %Eosinophils 1.4 % (0.0-10.0); %Lymphocytes 27.3 % (21.0-51.0); %Monocytes 7.2 % (0.0-10.0); %Neutrophils 63.9 % (42.0-75.0); Hemoglobin 13.3 g/dL (12.0-16.0); Mean Corpuscular HGB CONC 32.3 g/dL (32.0-36.0); Mean Corpuscular Volume 83.6 fl (78.0-98.0); Mean Platelet Volume 6.9 fL (7.4-10.4); Platelet Count 267 10x3/uL (130-400); RBC Distribution Width 14.3 % (11.5-14.5); White Blood Cell (WBC) Count 9.7 10x3/uL (4.8-10.8)
[2022-05-25 17:37] LABS: ALT (SGPT) 20 U/L (8-55); AST (SGOT) 23 U/L (5-34); Albumin 4.3 g/dL (3.5-5.0); Alkaline Phosphatase 99 U/L (40-110); Anion Gap 13 mmol/L (10-20); BUN (Urea Nitrogen) 15 mg/dL (7.0-18.7); Bilirubin, Total 0.3 mg/dL (0.2-1.2); Calc. Creatinine Clearance 0 mL/min (70-130); Calcium 9.5 mg/dL (7.8-10.44); Carbon Dioxide 25 mmol/L (22-29); Chloride 105 mmol/L (98-107); Estimated GFR 81; Globulin 3.2 g/dL (2.4-3.5); Glucose 93 mg/dL (70-105); Potassium 4.1 mmol/L (3.5-5.1); Protein, Total 7.5 g/dL (6.0-8.3); Sodium 139 mmol/L (136-145)
[2022-05-25] MEDS ORDERED: Fentanyl 100 MCG/2 ML VIAL ONE (17:37)
[2022-05-25] MEDS ORDERED: Ketorolac Tromethamine 30 MG/ML VIAL ONE (17:38)
[2022-05-25] MEDS ORDERED: Ondansetron PF 4 MG/2 ML Vial ONE ×2 (17:38→20:42)
[2022-05-25 17:56] LABS: BHCG - Serum Negative (NEGATIVE); Pregs Control Background? CLEAR/WHITE (CLR/WHITE); Pregs Control Bar Appear? YES (CONTROL BAR)
[2022-05-25 18:10] LABS: CK (CPK) 67 U/L (29-168); Lipase 35 U/L (8-78)
[2022-05-25 19:03] LABS: Bacteria/HPF None Seen HPF (None Seen); Bilirubin Negative (Negative); Blood, Urine 3+ (Negative); Clarity Extra Turbid (Clear); Glucose, Urine (Dipstick) Normal (Negative); Ketone, Urine Negative (Negative); Leukocyte 250 Leu/uL (Negative); Nitrite Negative (Negative); Protein, Urine (Dipstick) 30 mg/dL (Neg-Trace); RBC/HPF Greater than 50 HPF (0-3); Specific Gravity, Urine 1.021 (1.002-1.036); Squamous Epithelial 0-3 HPF (0-3); Urobilinogen Normal mg/dL (Less than 2); WBC/HPF Greater than 50 HPF (0-3); pH, Urine 7.5 (5.0-9.0)
[2022-05-25] MEDS ORDERED: Morphine 4 MG/ML VIAL ONE (19:31)
[2022-05-25] MEDS ORDERED: Morphine 4 MG/ML VIAL SLOW IVP PRN (19:34)
[2022-05-25] MEDS ORDERED: Ondansetron ODT 4 MG TAB SL PRN (19:45)
[2022-05-25] MEDS ORDERED: Ondansetron PF 4 MG/2 ML Vial IVP PRN (19:45)
[2022-05-25] MEDS: D5 1/2 NS w/20 mEq KCL 1,000 ML IV SCH (21:05)
[2022-05-26] MEDS: D5 1/2 NS w/20 mEq KCL 1,000 ML IV SCH (00:44)
[2022-05-26 06:33] LABS: SARS-CoV-2 NAA Rapid Test Not Detected (NotDetected)
[2022-05-26] MEDS: Ondansetron PF 4 MG/2 ML Vial IVP PRN ×2 (12:14→18:05)
[2022-05-26] MEDS ORDERED: Iopamidol 0 ML ONE (13:05)
[2022-05-26] MEDS ORDERED: Midazolam HCl 2 mg/2 ml Vial ONE (13:10)
[2022-05-26] MEDS ORDERED: Levofloxacin 500 mg/D5W 100 ml Premix Bag ONE (13:15)
[2022-05-26] MEDS ORDERED: Fentanyl 250 MCG/5 ML VIAL ONE (13:16)
[2022-05-26] MEDS ORDERED: SUGAMMADEX SODIUM 200 MG/2 ML VIAL ONE (13:16)
[2022-05-26] MEDS ORDERED: Succinylcholine Chloride 100 MG/5 ML SYRINGE FS ONE (13:20)
[2022-05-26] MEDS ORDERED: PROPOFOL 200 MG/20 ML VIAL ONE (13:20)
[2022-05-26] MEDS ORDERED: Lidocaine 1% PF 5 ML VIAL ONE (13:20)
[2022-05-26] MEDS ORDERED: ePHEDrine 50 MG/ML VIAL ONE (13:20)
[2022-05-26] MEDS ORDERED: Metoclopramide HCl 10 MG/2 ML VIAL ONE (13:20)
[2022-05-26] MEDS ORDERED: Non-Formulary Medication 1 EACH PO PRN (15:40)
[2022-05-26] MEDS ORDERED: Promethazine HCl 25 MG/ML VIAL IM/IV PRN (15:45)
[2022-05-26] MEDS ORDERED: Ondansetron HCl/PF 4 MG/2 ML Vial IVP PRN (15:45)
[2022-05-26] MEDS: Phenazopyridine HCl 100 MG TAB PO SCH (16:52)
[2022-05-26] MEDS: Morphine 2 MG/ML VIAL SLOW IVP PRN ×2 (16:52→23:49)
[2022-05-27 07:21] VITALS: BMI 306360.0
[2022-05-27] MEDS: Phenazopyridine HCl 100 MG TAB PO SCH ×2 (08:33→12:43)
[2022-05-27] MEDS: traMADol HCl 50 MG TAB PO PRN ×2 (08:33→12:43)
[2022-05-27 12:25] VITALS: BP 111/68; TEMP 98.1
[2022-05-29] MEDS ORDERED: FLU VACC QS2022-23(6MOS UP)/PF 60 MCG/0.5 ML SYRINGE IM ONE (09:00)
[2022-06-01 16:10] LABS: Color Tan (.)
== END 2022-05-27 14:00 | disposition home or self-care (01) ==
LOC: ERS 16:43 → INTOOBSV 19:30 → ERHOLD 19:30 → SURG A 23:34
PROVIDERS: ADMIT Urology; ATTEND Urology
PROC: 0TC08ZZ Extirpation of Matter from Right Kidney, Via Natural or Artificial Opening Endoscopic (ICD-10-PCS; principal; 2022-05-26)
PROC: 0TC68ZZ Extirpation of Matter from Right Ureter, Via Natural or Artificial Opening Endoscopic (ICD-10-PCS; 2022-05-26)
PROC: 0T768DZ Dilation of Right Ureter with Intraluminal Device, Via Natural or Artificial Opening Endoscopic (ICD-10-PCS; 2022-05-26)
DX: N13.2 Hydronephrosis with renal and ureteral calculous obstruction (principal); N13.4 Hydroureter; Z88.5 Allergy status to narcotic agent; Z20.822 Contact with and (suspected) exposure to COVID-19
CPT/HCPCS: 36415; 74176; 80053; 81003; 81015; 82365; 82550; 83690; 84703; 85025; 87077; 87086; 88300; 96374; 96375; 96376; C1769; C2617; G0378; J1885; J1956; J2250; J2270; J2272; J2405; J2704; J2765; J3010; J3480; J3490; Q9967; U0002